=== PATIENT | male | born 1945 | race Caucasian/White ===

== ENCOUNTER 2016-03-25 13:51 | Inpatient (IN) | payer OTHER, MEDICAID ==
--- NOTE | 2016-03-25 14:49 | EDPHY ---
H & P Time Seen by Provider: 03/25/16 14:48 HPI/ROS: Chief complaint. Shortness of breath HPI. 70-year-old male here by EMS who had shortness of breath after shoveling snow this morning. He could not catch his breath. It was difficult to walk about 35 yd because of shortness of breath. However he sat down causes breath and now feels better. He did not have chest discomfort. No fever cough. Again he is now back to normal. He has a history of COPD. No unusual leg pain or swelling ROS Constitutional. no fever/chills, no weakness Eyes. no problems with vision ENT. no sore throat, no nasal drainage Cardiovascular. no chest pain Respiratory. Shortness of breath Abdominal. no abdominal pain, no nausea/vomiting, no diarrhea . no problems urinating MS. no calf pain/swelling, no neck/back pain, no joint pain Skin. no rash Lymph. no swollen glands Neuro. no headache, no dizziness, no difficulty walking or with speech Past Medical/Surgical History: Hypertension, chronic back pain, kidney stones, COPD Social History: Single, daily smoker, no alcohol Smoking Status: Current every day smoker Physical Exam: General Appearance: Alert well-developed male mild distress vital signs are stable. O2 saturation 91% sat on room air Eyes: Pupils equal and round no pallor or injection. ENT, Mouth: Mucous membranes are moist. Respiratory: No retractions. Decreased breath sounds bilaterally Cardiovascular: Regular rate and rhythm. Gastrointestinal: Abdomen is soft and nontender, no masses, bowel sounds normal. Neurological: Awake and alert, sensory and motor exams grossly normal. Skin: Warm and dry, no rashes. Musculoskeletal: Neck is supple nontender. Extremities symmetrical, full range of motion. Psychiatric: Patient is oriented X 3, there is no agitation. Constitutional: Initial Vital Signs Temperature (C) 36.9 C 03/25/16 14:13 Heart Rate 90 03/25/16 14:13 Respiratory Rate 20 03/25/16 14:13 Blood Pressure 126/84 H 03/25/16 14:13 O2 Sat (%) 91 L 03/25/16 14:13 O2 Delivery Mode Room Air Allergies/Adverse Reactions: prednisone Allergy (Verified 02/24/15 10:17) Home Medications: Medication Instructions Recorded Lisinopril [Zestril 20 mg (RX)] 20 mg PO DAILY 08/27/12 celeCOXIB [Celebrex (RX)] 400 mg PO DAILY 08/27/12 morphINE SR [MS Contin/Oramorph SR 30 mg PO TID 06/17/13 30 mg (RX)] morphINE SR [Ms Contin/Oramorph 15 15 mg PO BID PRN 06/18/13 mg (RX)] Viagra 09/26/15 Baclofen [Baclofen 10 mg (*)] 10 mg PO BID 03/25/16 Bupropion HCl [Wellbutrin Xl] 300 mg PO DAILY 03/25/16 FLUoxetine [PROzac] 20 mg PO 03/25/16 Fluticasone/Vilanterol [Breo 1 each IH 03/25/16 Ellipta 200-25 Mcg INH] Testosterone [Androderm] 4 each TD DAILY 03/25/16 Medical Decision Making - Diagnostics Imaging: Chest x-ray interpreted by me shows no obvious evidence of pneumonia or pneumothorax. It is consistent with emphysema CT pulmonary angiogram of the chest shows no evidence for pulmonary embolus. He does have some stable heart nodules that do require some follow-up. Procedures: [facility]er[facility] ED Course/Re-evaluation: Serial evaluations. The patient remains stable. The patient and I discussed laboratory imaging results. We discussed treatment plan including admission and further evaluation. The patient expresses understanding and agreement I consulted and discussed the case with , hospitalist, who agrees to the admission Differential Diagnosis: I considered pneumonia, pneumothorax, pulmonary embolus, acute coronary syndrome , exacerbation of COPD - Data Points Laboratory Results: Laboratory Results 03/25/16 15:35 03/25/16 15:35 03/25/16 15:35 WBC 11.13 H 10^3/uL (3.80-9.50) RBC 5.38 10^6/uL (4.40-6.38) Hgb 15.9 g/dL (13.7-17.5) Hct 45.8 % (40.0-51.0) MCV 85.1 fL (81.5-99.8) MCH 29.6 pg (27.9-34.1) MCHC 34.7 g/dL (32.4-36.7) RDW 13.5 % (11.5-15.2) Plt Count 219 10^3/uL (150-400) MPV 9.4 fL (8.7-11.7) Neut % (Auto) 65.3 % (39.3-74.2) Lymph % (Auto) 23.2 % (15.0-45.0) Morrow % (Auto) 8.3 % (4.5-13.0) Eos % (Auto) 2.2 % (0.6-7.6) Baso % (Auto) 0.5 % (0.3-1.7) Nucleat RBC Rel Count 0.0 % (0.0-0.2) Absolute Neuts (auto) 7.26 H 10^3/uL (1.70-6.50) Absolute Lymphs (auto) 2.58 10^3/uL (1.00-3.00) Absolute Monos (auto) 0.92 H 10^3/uL (0.30-0.80) Absolute Eos (auto) 0.25 10^3/uL (0.03-0.40) Absolute Basos (auto) 0.06 10^3/uL (0.02-0.10) Absolute Nucleated RBC 0.00 10^3/uL (0-0.01) Immature Gran % 0.5 % (0.0-1.1) Immature Gran # 0.06 10^3/uL (0.00-0.10) D-Dimer 0.65 H ug/mLFEU (0.00-0.50) Sodium 141 mEq/L (134-144) Potassium 4.5 mEq/L (3.5-5.2) Chloride 105 mEq/L (97-110) Carbon Dioxide 23 mEq/l (22-31) Anion Gap 13 mEq/L (8-16) BUN 22 mg/dL (7-23) Creatinine 0.9 mg/dL (0.7-1.3) Estimated GFR > 60 Glucose 100 mg/dL (70-100) Calcium 9.7 mg/dL (8.5-10.4) Troponin I 0.045 H ng/mL (0-0.034) NT-Pro-B Natriuret Pep 253 H pg/mL (0-125) Medications Given: Discontinued Medications Albuterol/Ipratropium (Duoneb) 3 ml IH EDNOW ONE Stop: 03/25/16 15:01 Last Admin: 03/25/16 15:53 Dose: 3 ml Morphine Sulfate (Ms Contin/Oramorph) 15 mg PO ONCE ONE Stop: 03/25/16 16:52 Last Admin: 03/25/16 17:29 Dose: 15 mg Morphine Sulfate (Ms Contin/Oramorph Sr) 30 mg PO ONCE ONE Stop: 03/25/16 16:53 Last Admin: 03/25/16 17:29 Dose: 30 mg Departure - Departure Disposition: [facility] Inpatient Acute Clinical Impression: Elevated troponin level Dyspnea Qualifiers: Dyspnea type: dyspnea on exertion Qualifier Code: (R06.09) Other forms of dyspnea Condition: Fair Referrals: Stanley Lewis MD [Primary Care Provider] - As per Instructions
[2016-03-25] MEDS ORDERED: IPRATROPIUM/ALBUTEROL 3 ML DEYVIAL IH ONE (15:00)
--- NOTE | 2016-03-25 15:40 | DX ---
PA lateral chest x-ray 1443 hours. History: Dyspnea. Findings: Comparison to chest x-ray January 07, [address] chest study from September 11, 2015. Heart size remains upper limits of normal. Pulmonary vasculature is not significant engorged. There i s a stable subtle nodule right superhilar region measuring about 10 x 9 mm. No new pulmonary nodules are appreciated. There is no consolidation, effusion, or pneumothorax. There is relative lucency of t he upper lobes compatible with underlying emphysema. Arteriosclerotic calcification is noted at the a ortic arch level. Osseous structures are unchanged. Impression: 1. Stable smooth noncalcified pulmonary nodule inferior aspect right upper lobe. 2. Lucency involving the upper lobes compatible with underlying emphysema. 3. No evidence of acute infiltrate.
[2016-03-25 15:45] LABS: % IMMATURE GRANULYOCYTES 0.5 % (0.0-1.1); ABSOLUTE IMMATURE GRANULOCYTES 0.06 10^3/uL (0.00-0.10); ADD DIFF? NO; ADD MORPH? NO; ADD SCAN? NO; ATYPICAL LYMPHOCYTE FLAG 10 (0-99); FRAGMENT RBC FLAG 0 (0-99); HEMATOCRIT 45.8 % (40.0-51.0); HEMOGLOBIN 15.9 g/dL (13.7-17.5); LEFT SHIFT FLG 0 (0-99); LIPEMIA HEMOLYSIS FLAG 90 (0-99); MEAN CELL HEMOGLOBIN 29.6 pg (27.9-34.1); MEAN CELL HEMOGLOBIN CONCENTR. 34.7 g/dL (32.4-36.7); MEAN CELL VOLUME 85.1 fL (81.5-99.8); MEAN PLATELET VOLUME 9.4 fL (8.7-11.7); PLATELET CLUMPS FLAG 0 (0-99); PLATELET COUNT 219 10^3/uL (150-400); RED BLOOD CELL COUNT 5.38 10^6/uL (4.40-6.38); RED CELL DISTRIBUTION WIDTH 13.5 % (11.5-15.2)
[2016-03-25 16:02] LABS: ANION GAP 13 mEq/L (8-16); CALCIUM 9.7 mg/dL (8.5-10.4); CARBON DIOXIDE 23 mEq/l (22-31); CHLORIDE 105 mEq/L (97-110); CREATININE 0.9 mg/dL (0.7-1.3); GLOMERULAR FILTRATION RATE > 60; GLUCOSE 100 mg/dL (70-100); POTASSIUM 4.5 mEq/L (3.5-5.2); SODIUM 141 mEq/L (134-144)
--- NOTE | 2016-03-25 16:06 | CPEKG ---
Heart Rate: 73 RR Interval: 822 P-R Interval: 144 QRSD Interval: 100 QT Interval: 404 QTC Interval: 446 P [place]: 58 QRS [place]: 48 T Wave [place]: -32 EKG Severity - BORDERLINE ECG - EKG Impression: SINUS RHYTHM EKG Impression: BORDERLINE T ABNORMALITIES, DIFFUSE LEADS Electronically Signed By: Goyo Stevenson 25-Mar-2016 20:38:10
[2016-03-25 16:15] LABS: TROPONIN I 0.045 ng/mL (0-0.034)
[2016-03-25] MEDS ORDERED: morphINE SR 15 MG TAB PO ONE (16:51)
[2016-03-25] MEDS ORDERED: morphINE SR 30 MG TAB PO ONE (16:52)
[2016-03-25] MEDS ORDERED: IOPAMIDOL (ISOVUE 370) 100 ML BTL IV ONE (16:52)
--- NOTE | 2016-03-25 17:45 | CT ---
CT Pulmonary Angiogram Clinical Indications: Shortness of breath. Comparisons: September 11, 2015, February 02, 2015. Technique: Thinly collimated multidetector helical CT imaging was performed through the chest while 90 mL Isovue-370 were injected intravenously without complication. The images were then transferred to an independent workstation where multiplanar and three-dimensional reconstructions were performed by the interpreting physician and reviewed at multiple windows. Dose reduction techniques were utiliz ed. Findings Chest: There are diffuse emphysematous changes. Multiple pulmonary nodules are again present. The right upper lobe posteromedial nodule previously seen series 4 image 30 is obscured on today's ex amination. A nodular density on series 6 image 41 is stable at 5.0 x 4 mm but slightly obscured by adjacent atel ectatic change. The nodule series 6 image 47 measuring 9.5 x 7.2 mm is relatively stable. Scarring along the minor fi ssure in the left lobe remains stable. A nodule seen today measuring 3 x 2 mm is stable on series 6 i mage 113. Basilar interstitial changes are present. 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 CT Pulmonary Angiogram: No intraluminal filling defects are seen in the pulmonary arterial system to suggest pulmonary embolus. The thoracic aorta has a normal contour without evidence of aneurysm or dissection. Impressions 1. No pulmonary emboli. 2. Persistent emphysematous and interstitial lung changes. 3. Stable pulmonary nodules. Given the size of the largest pulmonary nodule, recommend continued inte rval follow up for a total of 24 months. The next examination should be at 18 to 24 months.
[2016-03-25] MEDS ORDERED: ONDANSETRON 4 MG/2 ML VIAL IVP PRN (23:06)
[2016-03-25] MEDS ORDERED: ACETAMINOPHEN 325 MG TAB PO PRN (23:06)
[2016-03-25] MEDS: IPRATROPIUM/ALBUTEROL 3 ML DEYVIAL IH PRN (23:46)
--- NOTE | 2016-03-25 23:53 | GHP ---
[f rep st] HISTORY AND PHYSICAL DATE OF ADMISSION: 03/25/2016 CHIEF COMPLAINT: Acute shortness of breath. HISTORY: The patient is a 70-year-old male who was clearing snow from his car when suddenly he devel oped severe shortness of breath. He went into the public housing where he lives, and felt he was in severe distress and motion to other residents to call 9-1-1. At no point, did he have any chest pain . At some point, this shortness of breath resolved and he is now back to baseline. He has a certain degree of chronic shortness of breath and dyspnea on exertion due to his underlying COPD. He does c ontinue to smoke. He is highly concerned about the chemical fumes that he inhales at his public hous ing and seems to perseverate on this issue quite a bit. He has a chronic cough which is recently unc hanged. He was found have a borderline troponin elevation in the emergency room, so he was being adm itted to observation for cardiac evaluation. PAST MEDICAL HISTORY: 1. Hypertension. 2. COPD. 3. Chronic pain with continuous narcotic dependency. PAST SURGICAL HISTORY: BPH, status post [employer] prostate surgery. MEDICATIONS: Please see computer record for full detailed list. ALLERGIES: Prednisone. SOCIAL HISTORY: Continues to smoke. He has had 3 cigarettes so far today. Occasionally drinks alco hol. Lives in an apartment at the [facility] authority. REVIEW OF SYSTEMS: Complete review of systems obtained. Review of systems is negative for constitut ional, HEENT, GI, pulmonary, cardiovascular, , hematology, skin, musculoskeletal, endocrine and psy ch except for positive pertinents which were listed as in HPI. FAMILY HISTORY: Father with coronary artery disease. PHYSICAL EXAMINATION: GENERAL: Well-developed well-nourished male, in no acute distress. VITAL SIG NS: Temperature is 37.2, pulse 76, blood pressure 126/82, saturating 98% room air. EYES: Normal co njunctivae. Pupils react to light. ENT: Normal ears and nose. Hearing intact. Normal teeth. Joaquin pharynx moist. NECK: Trachea midline. No thyromegaly. CHEST: Normal respiratory effort. Decreas ed breath sounds bilaterally with no wheezes, rhonchi, or rales. CARDIOVASCULAR: Regular rhythm. N o murmur. No lower extremity edema. ABDOMEN: Soft, nontender. No hepatosplenomegaly. SKIN: Warm , dry, intact. No rash. MUSCULOSKELETAL: No cyanosis or clubbing. Strength 5/5 upper and lower ex tremities. NEUROLOGIC: Cranial nerves intact. Normal sensation to light touch. PSYCH: Alert and oriented x3. Normal mood and affect. Normal judgment and insight. Normal memory. LABS: White count 11.13, hematocrit 45.8, platelets 219. Sodium 141, potassium 4.5, chloride 105, b icarb 23, BUN 22, creatinine 0.9, glucose 100. Troponin 0.045. BNP is 253. D-dimer 0.65. EKG reviewed by me and my personal interpretation is normal sinus rhythm. Diffuse T-wave flattening. CT angiogram of chest negative for pulmonary embolus. He does have pulmonary nodules for which follo wup is recommended in 24 months. ASSESSMENT AND PLAN: 1. Shortness of breath with slight troponin elevation. Query anginal equivalent. Will follow seria l troponins and EKGs. Will order Lexiscan stress test for the morning. 2. Chronic obstructive pulmonary disease. I suspect he is at his baseline. We will continue Breo a nd nebs as needed. 3. Chronic pain with continuous narcotic dependency. Continue his usual MS Contin dosing. 4. Pulmonary nodules. These are recommended for followup in 24 months. CODE STATUS: Full. ADMISSION STATUS: Will admit to observation as he may go home tomorrow if cardiac evaluation is nega tive. DVT PROPHYLAXIS: He is moderate risk. Will prescribe subcu Lovenox. /[id number]/MODL
[2016-03-26] MEDS: BACLOFEN 10 MG TAB PO SCH ×2 (00:23→20:27)
[2016-03-26 01:51] LABS: COLOR YELLOW; LEUKOCYTE ESTERASE,URINE NEGATIVE (NEGATIVE); NITRITE,URINE NEGATIVE (NEGATIVE)
[2016-03-26 04:05] LABS: % IMMATURE GRANULYOCYTES 0.7 % (0.0-1.1); ABSOLUTE IMMATURE GRANULOCYTES 0.05 10^3/uL (0.00-0.10); ADD DIFF? NO; ADD MORPH? NO; ADD SCAN? NO; ATYPICAL LYMPHOCYTE FLAG 10 (0-99); FRAGMENT RBC FLAG 0 (0-99); HEMATOCRIT 42.5 % (40.0-51.0); HEMOGLOBIN 14.5 g/dL (13.7-17.5); LEFT SHIFT FLG 0 (0-99); LIPEMIA HEMOLYSIS FLAG 90 (0-99); MEAN CELL HEMOGLOBIN 29.1 pg (27.9-34.1); MEAN CELL HEMOGLOBIN CONCENTR. 34.1 g/dL (32.4-36.7); MEAN CELL VOLUME 85.3 fL (81.5-99.8); MEAN PLATELET VOLUME 9.5 fL (8.7-11.7); PLATELET CLUMPS FLAG 0 (0-99); PLATELET COUNT 192 10^3/uL (150-400); RED BLOOD CELL COUNT 4.98 10^6/uL (4.40-6.38); RED CELL DISTRIBUTION WIDTH 13.6 % (11.5-15.2)
[2016-03-26 04:12] LABS: ANION GAP 9 mEq/L (8-16); CALCIUM 9.2 mg/dL (8.5-10.4); CARBON DIOXIDE 22 mEq/l (22-31); CHLORIDE 108 mEq/L (97-110); CHOLESTEROL 232 mg/dL (140-220); CHOLESTEROL/HDL RATIO 5.27 RATIO (1.00-4.97); CREATININE 0.8 mg/dL (0.7-1.3); GLOMERULAR FILTRATION RATE > 60; GLUCOSE 105 mg/dL (70-100); HIGH DENSITY LIPOPROTEIN 44 mg/dL (40-65); LDL/HDL RATIO 3.73 RATIO (1.00-3.64); LOW DENSITY LIPOPROTEIN 164 mg/dL (80-100); NON-HIGH DENSITY LIPOPROTEIN 188 mg/dL (90-129); POTASSIUM 4.3 mEq/L (3.5-5.2); SODIUM 139 mEq/L (134-144); TRIGLYCERIDE 124 mg/dL (40-150); VERY LOW DENSITY LIPOPROTEINS 24 mg/dL (8-25)
[2016-03-26 04:23] LABS: TROPONIN I 0.088 ng/mL (0-0.034)
[2016-03-26] MEDS: IPRATROPIUM/ALBUTEROL 3 ML DEYVIAL IH PRN ×2 (05:39→10:59)
--- NOTE | 2016-03-26 05:46 | CPEKG ---
Heart Rate: 63 RR Interval: 952 P-R Interval: 152 QRSD Interval: 100 QT Interval: 436 QTC Interval: 447 P [place]: 33 QRS [place]: 44 T Wave [place]: 190 EKG Severity - ABNORMAL ECG - EKG Impression: SINUS RHYTHM EKG Impression: LOW VOLTAGE IN FRONTAL LEADS EKG Impression: NONSPECIFIC T ABNORMALITIES, DIFFUSE LEADS Electronically Signed By: Darrell Goodrich 27-Mar-2016 10:53:06
[2016-03-26] MEDS: ASPIRIN EC 325 MG TAB PO SCH (08:53)
[2016-03-26] MEDS: buPROPion XL 150 MG TAB PO SCH (08:53)
[2016-03-26] MEDS: ENOXAPARIN 40 MG/0.4 ML SYR SC SCH (08:53)
[2016-03-26] MEDS: FLUoxetine 20 MG CAP PO SCH (08:53)
[2016-03-26] MEDS: morphINE SR 30 MG TAB PO SCH (08:54)
[2016-03-26] MEDS: LISINOPRIL 20 MG TAB PO SCH (08:54)
[2016-03-26] MEDS: morphINE SR 15 MG TAB PO SCH (08:54)
[2016-03-26] MEDS: Fluticasone/Vilanterol [Breo Ellipta 200-25 Mcg Inh] 1 EACH IH SCH (08:55)
[2016-03-26] MEDS: TESTOSTERONE TD SCH (08:56)
[2016-03-26] MEDS ORDERED: REGADENOSON 0.4 MG/5 ML SYR IVP ONE (10:29)
--- NOTE | 2016-03-26 13:59 | ECHO ---
[id number] + + [address] : : [place] [address] : : [phone] + + Adult Echocardiographic Report + + :Name: ALEC COHEN HStudy Date: 03/26/2016 11:50 AM BP: 121/77 mmHg : : Hospital Admission Number: [id number] : :: 1945 Gender: Male Height: 71 in : :Age: 70 yrs Race: WH Weight: 237 lb : :Reason For Study: chf : : BSA: 2.3 meters2: :History: bicuspid av : + + MMode/2D Measurements & Calculations IVSd: 1.0 cm RVDd: 3.4 cm FS: 32.3 % Ao root diam: LVPWd: 1.1 cm LVIDd: 4.0 cm EDV(Teich): 69.6 ml4.3 cm LVIDs: 2.7 cm ESV(Teich): 27.1 ml EF(Teich): 61.2 % LVOT diam: 2.2 cmLVLd ap4: 8.5 cm SV(MOD-sp4): LVOT area: EDV(MOD-sp4): 96.0 ml 3.8 cm2 148.0 ml LVLs ap4: 7.3 cm ESV(MOD-sp4): 52.0 ml EF(MOD-sp4): 64.9 % Normal Measurement Values: + + :LVIDd (3.5-5.7cm) IVSd (0.6-1.1cm) LVPWd (0.6-1.1cm) Aortic Root (2.0-3.7cm)Left Atrium (1.5-4.0cm): :LV Vol(d) (76-115ml) LV Vol(s) (29-48ml) Ejec Fraction (50-65%)PV Toño (0.6- 1.2m/s) TV Toño (0.4-1.0m/s) : :MV E Toño (0.8-1.0m/s)MV A Toño (0.3-1.0m/s)LVOT Toño (0.7-1.2m/s) Asc Ao Toño ( 0.9-1.8m/s) : + + Doppler Measurements & Calculations MV E max toño: Ao mean PG: AI max toño: LV V1 mean P.6 cm/sec 14.9 mmHg 295.9 cm/sec 1.5 mmHg MV A max toño: Ao V2 mean: AI max P.0 mmHgLV V1 mean: 54.6 cm/sec 186.7 cm/sec AI dec slope: 57.7 cm/sec MV E/A: 0.63 Ao V2 VTI: 50.8 cm 185.4 cm/sec2 LV V1 VTI: MV dec time: NOEL(I,D): 1.4 cm2 AI P1/2t: 467.5 msec18.1 cm 0.27 sec SV(LVOT): 69.3 ml PA V2 max: 69.8 cm/sec PA max P.9 mmHg Left Ventricle The left ventricle is normal in size and function. There is borderline concentric left ventricular hypertrophy. There is Doppler evidence for diastolic dysfunction. Ejection Fraction = 60-65%. Regional wall motion abnormalities cannot be excluded due to limited visualization. Right Ventricle The right ventricle is normal in size and function. Atria The left atrial size is normal. Right atrial size is normal. Mitral Valve The mitral valve is normal in structure and function. There is no mitral valve stenosis. There is no mitral regurgitation noted. Tricuspid Valve The tricuspid valve is normal in structure and function. No tricuspid regurgitation. Aortic Valve The aortic valve is bicuspid. Mild to moderate valvular aortic stenosis. Aortic insufficiency difficult to grade to due sub-optimal window and uncooperative patient. The jet is eccentric and at least mild; more likely mild to moderate. Pulmonic Valve The pulmonic valve is not well visualized. Great Vessels The aortic root is normal size. Pericardium/Pleural There is no pericardial effusion. Conclusion A two-dimensional transthoracic echocardiogram with M-mode and Doppler was performed. Technically difficult study and uncooperative patient. The left ventricle is normal in size and function. There is borderline concentric left ventricular hypertrophy. Ejection Fraction = 60-65%. There is Doppler evidence for diastolic dysfunction. The aortic valve is bicuspid. Mild to moderate valvular aortic stenosis with peak/mean gradients of 35 mmHg and 15 mmHg. Aortic valve area 1.4 sq cm. Aortic insufficiency difficult to grade to due sub-optimal window and uncooperative patient. The jet is eccentric and at least mild; more likely mild to moderate. Other valves with normal appearance. PA systolic pressure could not be estimated. Final Reading Physician: Wisam Cameron signed on 03/26/2016 01:58 PM Ordering Physician: Angelica Carbone Performed By: Chléo Donohue
--- NOTE | 2016-03-26 14:45 | CPR ---
[f rep st] NONINVASIVE CARDIAC PROCEDURE REPORT DATE OF PROCEDURE: 03/26/2016 PROCEDURE: Lexiscan nuclear stress test. INDICATIONS FOR PROCEDURE: A 70-year-old male with no known cardiac history and underlying asthma an d COPD who was admitted through the emergency room yesterday for acute on chronic shortness of breath . His troponins have been minimally elevated x3. He has ruled out for pulmonary embolism by chest C T angiography. Nuclear stress testing is ordered by the hospitalist service for further risk stratif ication and surveillance myocardial perfusion. PROCEDURE DESCRIPTION: Informed consent was obtained. Baseline EKG, heart rate and blood pressure w ere obtained in the supine position with continuous pulse oximetry. The patient was pretreated with a bronchodilator nebulizer prior to standard Lexiscan 0.4 mg IV push followed by 27.3 mCi of sestamib i. He was observed throughout the duration of the test for 1-1/2 minutes and then observed in recove ry for 5 minutes. FINDINGS: Baseline EKG shows normal sinus rhythm at 64 beats per minute, QRS axis and intervals are normal. There are no ischemic EKG changes. Resting blood pressure is 124/64 mmHg. Oxygen saturatio n is 95%. Following injection of Lexiscan, the patient described warmth, but no worsening of chest d iscomfort or shortness of breath. There were no ischemic EKG changes throughout the test. Overall t he patient tolerated the test well. IMPRESSION: 1. Mildly elevated troponins. 2. Acute on chronic shortness of breath. 3. Asthma and chronic obstructive pulmonary disease. 4. Unremarkable Lexiscan stress test. PLAN: The patient will be sent down for myocardial perfusion imaging. We will await results. If th ere is evidence of reversible myocardial perfusion on imaging, we will discuss whether further diagno stic angiography is indicated. /[id number]/MODL
[2016-03-26] MEDS: morphINE SR 30 MG TAB PO PRN (18:08)
[2016-03-26] MEDS ORDERED: BACLOFEN 10 MG TAB PO SCH (21:00)
--- NOTE | 2016-03-26 21:02 | HOSPPROG ---
Hospitalist Progress Note Assessment/Plan: *dyspnea with borderline tropnonin elevation * abnormal stress images * will need to stay for resting images *as/ai * will need to discuss with cardiology * copd *chronic pain Subjective: no chest pain Objective: Vital Signs Temp Pulse Resp BP Pulse Ox 36.9 C 77 14 122/77 H 97 03/26/16 19:53 03/26/16 19:53 03/26/16 19:53 03/26/16 19:53 03/26/16 19:53 Laboratory Results 03/26/16 03:36 03/26/16 03:36 03/25/16 03/26/16 03/27/16 05:59 05:59 05:59 Intake Total 1000 360 Output Total 250 Balance 750 360 - Physical Exam Constitutional: no apparent distress, appears nourished, not in pain Eyes: anicteric sclera, EOMI Ears, Nose, Mouth, Throat: moist mucous membranes Cardiovascular: regular rate and rhythym, systolic murmur Respiratory: no respiratory distress, no rales or rhonchi, clear to auscultation Gastrointestinal: normoactive bowel sounds, soft, non-tender abdomen, no palpable masses Neurologic: AAOx3 Psychiatric: interacting appropriately, not anxious, not encephalopathic, thought process linear ICD10 Worksheet Patient Problems: Problems Problem Status Diagnosed Dyspnea Acute Elevated troponin Acute Acute renal failure syndrome Active Pain in cervical spine Active
[2016-03-27] MEDS: morphINE SR 30 MG TAB PO SCH ×3 (00:47→21:55)
[2016-03-27] MEDS: morphINE SR 15 MG TAB PO SCH ×3 (00:47→21:55)
[2016-03-27] MEDS: Fluticasone/Vilanterol [Breo Ellipta 200-25 Mcg Inh] 1 EACH IH SCH (08:51)
[2016-03-27] MEDS: buPROPion XL 150 MG TAB PO SCH (09:14)
[2016-03-27] MEDS: ASPIRIN EC 325 MG TAB PO SCH (09:14)
[2016-03-27] MEDS: LISINOPRIL 20 MG TAB PO SCH (09:14)
[2016-03-27] MEDS: FLUoxetine 20 MG CAP PO SCH (09:15)
[2016-03-27] MEDS: ENOXAPARIN 40 MG/0.4 ML SYR SC SCH (09:15)
[2016-03-27] MEDS: TESTOSTERONE TD SCH (09:52)
--- NOTE | 2016-03-27 11:09 | NM ---
Nuclear Medicine Myocardial Perfusion Stress and Rest Imaging with Lexiscan History: Abnormal EKG. History of COPD. Tobacco use. Technique: Rest imaging performed with intravenous administration of 21.3 mCi of technetium 99m la beled Sestamibi. Stress imaging performed with the intravenous administration of 27.3 mCi of techneti um 99m Sestamibi labeled with the administration of 0.4 mg of Lexiscan. Findings: Normal left ventricular ejection fraction of 59%. Stress and rest imaging demonstrates focal area of decreased uptake on stress imaging involving the left ventricular apex that appears to show normal uptake on rest imaging. This could represent focal area of mild ischemia. Uptake is other babin normal involving the left ventricle. No focal wall motion abnormalities. Impression: 1. Normal left ventricular ejection fraction of 59%. 2. No focal wall motion abnormalities. 3. Possible focal area of ischemia left ventricular apex. No underlying infarct.
[2016-03-27] MEDS: POLYETHYLENE GLYCOL 3350 17 GM PKT PO PRN (12:30)
--- NOTE | 2016-03-27 12:37 | PDCARPN ---
Cardiology Progress Note Chief Complaint: SOB. Assessment/Plan: Assessment: 1. Shortness of breath 2. Abnormal Lexiscan nuclear stress 3. Abnormal troponin 4. HTN 5. Hyperlipidemia 6. Current smoking history Plan: 1. Add Atorvastatin 40 mg daily 2. Add aspirin 81 mg daily 3. continue Lisinpril 20 mg daily 4. NPO after midnight 5. Left Heart Cath tomorrow 6. Smoking cessation discussed. 03/27/16 12:34 Subjective: 70 year old gentleman with multiple CAD risk factors with acute onset of sob on Monday while clearing his car from snow. Mildly abnormal troponin and apical ischemia on nuclear stress test. Reviewed/Discussed With: hospitalist Time Spent With Patient: 30 minutes Objective: Vital Signs (8 Hrs) Temp Pulse Resp BP Pulse Ox 03/27/16 08:15 36.8 C 67 17 121/61 H 98 03/27/16 05:00 36.5 C 71 16 148/87 H 97 Intake/Output (24 Hrs) 03/26/16 03/27/16 03/28/16 05:59 05:59 05:59 Intake Total 750 Output Total 150 Balance 600 Intake: Oral (ml) 750 Output: Urine (ml) 150 Urinal 150 Other: Number of Voids Urinal 1 Toilet 1 Result Diagrams: 03/26/16 03:36 03/26/16 03:36 - Physical Exam Constitutional: WDWN, obese Eyes: anicteric sclera Ears, Nose, Mouth, Throat: moist mucous membranes Cardiovascular: regular rate and rhythm, systolic murmur Peripheral Pulses: 2+: carotid (R), carotid (L) Respiratory: clear to auscultate bilat Gastrointestinal: normoactive bowel sounds, no tenderness Neurologic: AAOx3, CN II-XII grossly intact Psychiatric: cooperative, interactive, following commands ICD10 Worksheet Patient Problems: Problems Problem Status Diagnosed Dyspnea Acute Elevated troponin Acute Acute renal failure syndrome Active Pain in cervical spine Active
[2016-03-27] MEDS: morphINE SR 30 MG TAB PO PRN (13:53)
--- NOTE | 2016-03-27 14:34 | HOSPPROG ---
Hospitalist Progress Note Assessment/Plan: *dyspnea with borderline tropnonin elevation * abnormal stress images * will get heart catheterization tomorrow *as/ai * appears to be mild * copd *chronic pain Subjective: no new complaints. No chest pain or shortness of breath Objective: Vital Signs Temp Pulse Resp BP Pulse Ox 36.7 C 75 14 103/67 93 03/27/16 12:59 03/27/16 12:59 03/27/16 12:59 03/27/16 12:59 03/27/16 12:59 03/26/16 03/27/16 03/28/16 05:59 05:59 05:59 Intake Total 750 120 Output Total 150 Balance 600 120 tele personally reviewed interpreted normal sinus rhythm discussed with Cardiology - Physical Exam Constitutional: no apparent distress, appears nourished, not in pain Eyes: anicteric sclera, EOMI Ears, Nose, Mouth, Throat: moist mucous membranes, hearing normal, ears appear normal Cardiovascular: regular rate and rhythym, systolic murmur Respiratory: no respiratory distress, no rales or rhonchi, clear to auscultation Gastrointestinal: normoactive bowel sounds, soft, non-tender abdomen, no palpable masses Skin: warm Neurologic: AAOx3 Psychiatric: interacting appropriately, not anxious, not encephalopathic, thought process linear ICD10 Worksheet Patient Problems: Problems Problem Status Diagnosed Dyspnea Acute Elevated troponin Acute Acute renal failure syndrome Active Pain in cervical spine Active
[2016-03-27] MEDS ORDERED: TEMAZEPAM 15 MG CAP PO PRN (15:00)
[2016-03-27] MEDS ORDERED: BACLOFEN 10 MG TAB PO PRN (16:42)
--- NOTE | 2016-03-27 19:28 | GCON ---
[f rep st] CONSULTATION CARDIOLOGY CONSULTATION DATE OF CONSULTATION: 03/27/2016 INDICATION FOR CONSULTATION: Exertional dyspnea on exertion, abnormal Lexiscan nuclear stress test. HISTORY OF PRESENT ILLNESS: The patient is a pleasant 70-year-old gentleman with a past medical hist ory of hypertension, COPD, chronic pain on chronic narcotic therapy, and history of BPH, who presente d to [facility] Emergency Department on March 25, 2016, in the setting of developing acute shortness of breath and dyspnea while clearing snow from his car. He states he went inside an d called 911. He denied any associated chest pain or chest pressure. He was admitted to [address] [place] [address] for observation. He was determined to have borderline troponins with initial troponin of 0.045 , trending up to 0.098, and trending down to . He underwent a pharmacologic Lexiscan nucl ear stress test. During Lexiscan, he had no chest pain or ECG changes. Nuclear images demonstrated a small area of ischemia isolated to the LV apex. He also underwent a CTA, which was negative for pu lmonary emboli. The patient also has a known history of a murmur. Echocardiogram demonstrated [id number] aorti c stenosis with preserved left ventricular function. Pulmonary pressures were unable to be calculate d. Currently, at the time of my exam, he is resting comfortably without complaint. PAST MEDICAL HISTORY: 1. Hypertension. 2. COPD. 3. Chronic pain. 4. History of smoking. PAST MEDICAL HISTORY: BPH. MEDICATIONS ON ADMISSION: Include morphine, lisinopril 20 mg daily, Prozac 40 mg daily, Celebrex 400 mg daily, Wellbutrin 300 mg daily, baclofen 10-15mg p.o. h.s., fluticasone/vilanterol 200/25 mcg inh aled daily, testosterone Androderm daily. ALLERGIES TO MEDICATION: Include prednisone. PHYSICAL EXAMINATION: VITAL SIGNS: Blood pressure 121/61, heart rate 67 in sinus rhythm, oxygen sat uration of 98% on 2 L nasal cannula, heart rate 67, temperature 36.8. CONSTITUTIONAL: He is awake, alert, oriented, and appropriate in no apparent distress. NECK: No evidence of JVP or carotid bruit s. LUNGS: Clear to auscultation bilaterally. CARDIAC: He has a 1/6 systolic murmur audible at the right upper sternal border without radiation. ABDOMEN: Demonstrates normal bowel sounds. Soft. N ontender. No evidence of cyanosis, clubbing, or edema. LABORATORY DATA: Demonstrates a white blood cell count of 7.68, hemoglobin of 14.5, hematocrit of 42 .5, platelets of 192. Sodium 139, potassium 4.3, chloride 108, bicarb 22, BUN 16, creatinine 0.8, gl ucose 105. Troponin has trended from 0.045 up to 0.098 and down to . Lipid profile demons trates total cholesterol of 232, triglycerides of 124, HDL of 44, and LDL of 164. IMPRESSION: 1. Abnormal nuclear stress test. 2. Mildly elevated troponin. 3. Multiple coronary artery disease risk factors, including hypertension, hyperlipidemia, and smokin g history. 4. Bmsr-pf-vwdaftse aortic stenosis. DISCUSSION: The patient is a 70-year-old gentleman with multiple coronary artery disease risk factor s, and acute onset of shortness of breath while removing snow from his car yesterday. Troponins were mildly abnormal. Nuclear stress test demonstrates a small area of ischemia isolated to the apex. I n the setting of multiple coronary artery disease risk factors and mildly elevated troponin, would re commend left heart catheterization. PLAN: 1. Recommend left heart catheterization to be done tomorrow. 2. Add atorvastatin 40 mg daily. 3. Add aspirin 81 mg daily. 4. Continue current dose of lisinopril. /[id number]/MODL
[2016-03-27] MEDS: BACLOFEN 10 MG TAB PO SCH (21:54)
[2016-03-28 04:45] LABS: % IMMATURE GRANULYOCYTES 0.4 % (0.0-1.1); ABSOLUTE IMMATURE GRANULOCYTES 0.03 10^3/uL (0.00-0.10); ADD DIFF? NO; ADD MORPH? NO; ADD SCAN? NO; ATYPICAL LYMPHOCYTE FLAG 10 (0-99); FRAGMENT RBC FLAG 0 (0-99); HEMOGLOBIN 14.1 g/dL (13.7-17.5); LEFT SHIFT FLG 0 (0-99); LIPEMIA HEMOLYSIS FLAG 80 (0-99); MEAN CELL HEMOGLOBIN 29.6 pg (27.9-34.1); MEAN CELL HEMOGLOBIN CONCENTR. 32.8 g/dL (32.4-36.7); MEAN CELL VOLUME 90.3 fL (81.5-99.8); MEAN PLATELET VOLUME 9.6 fL (8.7-11.7); PLATELET CLUMPS FLAG 0 (0-99); PLATELET COUNT 172 10^3/uL (150-400); RED BLOOD CELL COUNT 4.76 10^6/uL (4.40-6.38); RED CELL DISTRIBUTION WIDTH 13.7 % (11.5-15.2)
[2016-03-28 04:53] LABS: APTT 29.8 SEC (23.0-38.0); INR 0.97 (0.83-1.16); PROTIME(PATIENT) 12.8 SEC (12.0-15.0)
[2016-03-28 05:07] LABS: ANION GAP 5 mEq/L (8-16); CALCIUM 8.8 mg/dL (8.5-10.4); CARBON DIOXIDE 28 mEq/l (22-31); CHLORIDE 107 mEq/L (97-110); CHOLESTEROL 213 mg/dL (140-220); CHOLESTEROL/HDL RATIO 5.92 RATIO (1.00-4.97); CREATININE 0.8 mg/dL (0.7-1.3); GLOMERULAR FILTRATION RATE > 60; GLUCOSE 100 mg/dL (70-100); HIGH DENSITY LIPOPROTEIN 36 mg/dL (40-65); LDL/HDL RATIO 4.33 RATIO (1.00-3.64); LOW DENSITY LIPOPROTEIN 156 mg/dL (80-100); MAGNESIUM 1.9 mg/dL (1.6-2.3); NON-HIGH DENSITY LIPOPROTEIN 177 mg/dL (90-129); POTASSIUM 5.1 mEq/L (3.5-5.2); SODIUM 140 mEq/L (134-144); TRIGLYCERIDE 105 mg/dL (40-150); VERY LOW DENSITY LIPOPROTEINS 21 mg/dL (8-25)
--- NOTE | 2016-03-28 08:36 | CPEKG ---
Heart Rate: 60 RR Interval: 1000 P-R Interval: 152 QRSD Interval: 102 QT Interval: 428 QTC Interval: 428 P [place]: 40 QRS [place]: 42 T Wave [place]: -20 EKG Severity - BORDERLINE ECG - EKG Impression: SINUS RHYTHM EKG Impression: BORDERLINE T ABNORMALITIES, INFERIOR LEADS Electronically Signed By: Stepan Brock 28-Mar-2016 15:49:12
[2016-03-28] MEDS: Fluticasone/Vilanterol [Breo Ellipta 200-25 Mcg Inh] 1 EACH IH SCH (08:54)
[2016-03-28] MEDS: morphINE SR 30 MG TAB PO SCH ×2 (09:13→20:00)
[2016-03-28] MEDS: morphINE SR 15 MG TAB PO SCH ×2 (09:13→20:00)
[2016-03-28] MEDS: buPROPion XL 150 MG TAB PO SCH ×2 (09:14→20:01)
[2016-03-28] MEDS: FLUoxetine 20 MG CAP PO SCH ×2 (09:14→20:01)
[2016-03-28] MEDS: ATORVASTATIN CALCIUM 40 MG TAB PO SCH (09:14)
[2016-03-28] MEDS: ASPIRIN EC 325 MG TAB PO SCH (09:14)
[2016-03-28] MEDS: LISINOPRIL 20 MG TAB PO SCH (09:14)
[2016-03-28] MEDS: ENOXAPARIN 40 MG/0.4 ML SYR SC SCH (09:15)
[2016-03-28] MEDS: TESTOSTERONE TD SCH (09:40)
[2016-03-28] MEDS ORDERED: LIDOCAINE 1% 30 ML SDV ONE (11:24)
[2016-03-28] MEDS ORDERED: MIDAZOLAM 2 MG/2 ML VIAL ONE ×2 (11:25→12:54)
[2016-03-28] MEDS ORDERED: HEPARIN 10,000 UNIT/10 ML MDV ONE (11:25)
[2016-03-28] MEDS ORDERED: VERAPAMIL 5 MG/2 ML VIAL ONE (11:25)
[2016-03-28] MEDS ORDERED: IOPAMIDOL (ISOVUE-370) 150 ML BTL IV ONE ×2 (11:25→12:09)
[2016-03-28] MEDS ORDERED: fentaNYL 100 MCG/2 ML INJ ONE ×2 (11:25→12:53)
[2016-03-28] MEDS ORDERED: diphenhydrAMINE 25 MG CAP PO ONE ×2 (11:30→15:00)
[2016-03-28] MEDS ORDERED: DIAZEPAM 5 MG TAB ONE (11:30)
[2016-03-28] MEDS ORDERED: FAMOTIDINE 20 MG TAB ONE (11:30)
--- NOTE | 2016-03-28 11:57 | SUROPNOTE ---
[facility]LL[facility] Operative Report - Surgery Date of Procedure: 03/28/16 Indication: This patient is a 70 year old man, with history of hypertension, COPD, chronic pain on chronic narcotic therapy, and ongoing cigarette smoking, who presented to the emergency department on 03/25/16 with acute dyspnea while clearing snow from his car. Initially had borderline elevated troponin, which trended upwards to 0.098, and subsequently has trended downward. Lexiscan nuclear stress test was abnormal, demonstrating a small area of reversible ischemia to the LV apex. Right/left heart catheterization secondary to [place] Cardiovascular class IV anginal equivalent, acute coronary syndrome, and intermediate risk nuclear stress test. Procedures performed: 1. Right and Left heart catheterization with left ventricular and selective coronary angiography. 2. Intracoronary stent placement x1 and high-pressure post-dilation balloon angioplasty in the right coronary artery. 3. Aortic root and ascending arch aortography Description of procedure: Description, risks, benefits and alternatives were discussed in detail. Informed consent was obtained. The patient was brought to the catheterization laboratory where a timeout was performed. The right arm was sterilely prepped and draped. 2% lidocaine utilized for local anesthetic. A 5-Haitian hemostatic sheath was placed in the right brachial vein utilizing the micropuncture technique. A 5-Haitian PWP catheter was utilized for right heart catheterization. Following the right heart catheterization, a 5/6-Haitian slender hemostatic sheath placed right radial artery utilizing micropuncture technique. Intraarterial verapamil and intravenous heparin was administered. Diagnostic coronary angiography performed with 6-Haitian, Sami left-3.5, Sami right-4, Sami left-4.5, Sami left-5 and AL1 catheter. Catheters passed over a 0.035 guidewire, J Glidewire, and an Amplatz wire. There was moderate difficulty navigating the wires and catheters to engage the coronaries secondary to unique, tortuous vasculature. There is an obvious culprit lesion of a xwrmpemw-zs-qpf 90% stenosis in the dominant right coronary artery. Intracoronary nitroglycerin and verapamil was administered to ensure that this did not represent catheter-induced spasm. No change was seen. Plans were made for percutaneous intervention. A 6-Haitian AL1 short tip guide catheter was utilized to engage the right coronary. A short VENNCOMM J wire was placed in the right coronary artery across the lesion. A 4.0mm x 28mm Synergy drug-eluding stent was chosen and carefully positioned in the proximal right coronary artery to cover the severe lesion. This was deployed to 18 atmospheres for 15 seconds. Next, a 4.0mm x 15mm NC Emerge balloon was placed in the proximal right coronary for high-pressure post- dilation of the stented segment, utilized for 4 inflations to a maximum of 25 atmospheres. There was excellent result, with 0% residual stenosis by angiography. Final orthogonal angiography was performed. A 5-Haitian 145cm Pigtail catheter was then utilized for left heart catheterization and left ventricular angiography. Aortic root and ascending arch aortography was also performed. Arterial sheath was removed and TR band was placed. Venous sheath was removed in the CVC. Findings: 1. Hemodynamics: Right atrial pressure mean of 12, right ventricular pressure 64/9/15 end-diastolic, pulmonary artery pressure 67/29, mean of 46, pulmonary capillary wedge pressure mean of 15 with no significant V wave. Aortic pressure 101/63, mean of 81, left ventricular pressure 105/12/18 end-diastolic. There was no significant pull back gradient across the aortic valve. 2. Saturations: Superior vena cava 70.2%, main pulmonary artery 68.5%, Ao 92.2% . Assumed Lenora cardiac output 6.71L/min with cardiac index of 2.96L/min/m2. 2. Left ventricle and aortic root/ascending arch aortography: The left ventricle appears normal in size. Left ventricle is normal shape. Segmental wall motion is normal with an ejection fraction of 60%. There are no filling defects or significant mitral regurgitation. {{{{{The aortic root and aortic arch is abnormal, demonstrating a }}}}} 3. Coronary angiography: Left main: The left main is extremely short and bifurcating (near non-existent, almost separate ostia) 4. Left anterior descending: This is a moderately large vessel continuing around the apex. There is a large first diagonal, small second diagonal, and moderately large third diagonal branch. The left anterior descending contains a mid 30% stenosis, otherwise mild luminal irregularities. 5. Circumflex: The circumflex is nondominant. It has a moderate first obtuse marginal branch, large bifurcating second obtuse marginal branch, and a moderate posterolateral bifurcating system. The circumflex, just proximal to the first obtuse marginal, contains a 60% eccentric stenosis. The principle marginal branch contains a 75% eccentric stenosis. The remainder of the circumflex contains mild luminal irregularities. 6. Right coronary: Large dominant vessel. There is a proximal-mid 90% stenosis. 7. Percutaneous intervention: Guided by angiography, a single drug-eluding stent was placed in the proximal right coronary artery followed by high- pressure post-dilation balloon angioplasty, with excellent result and 0% residual stenosis demonstrated by angiography. Overall Impression: 1. Severe pulmonary hypertension, with systolic pulmonary artery pressure of 67mmHg. 2. Severe 90% stenosis in the proximal right coronary artery, treated with a single drug-eluding stent followed by high-pressure post-dilation balloon angioplasty, with excellent result and 0% residual stenosis demonstrated by angiography. 3. Moderate coronary artery disease in the circumflex and principle obtuse marginal branch. Otherwise, mild disease in the remainder of the circumflex and in the left anterior descending. 4. Normal left ventricular systolic function with ejection fraction of 60%. 5. {{{{{Abnormal aortic arch appearance}}}}} Plan: 1. Dual anti-platelet therapy 2. Aggressive risk modification and high dose statin therapy. 3. Referral to pulmonology for treatment of COPD and pulmonary hypertension. 4. Close clinical follow up. Portions of this chart were entered by a scribe. I have reviewed this chart and agree with the documentation. Report scribed for Dr. Erwin Galindo. Report scribed by Emmanuelle Armstrong.
[2016-03-28] MEDS ORDERED: NITROGLYCERIN 1,500 MCG/15 ML VIAL MISC ONE (12:09)
[2016-03-28] MEDS ORDERED: PRASUGREL HCL 10 MG TAB ONE (13:12)
[2016-03-28] MEDS ORDERED: NITROGLYCERIN 0.4 MG BTL SL PRN (13:39)
[2016-03-28] MEDS ORDERED: HYDROCODONE/APAP 5/325 TAB PO PRN (13:39)
[2016-03-28] MEDS ORDERED: ONDANSETRON 4 MG/2 ML VIAL IVP PRN (13:39)
[2016-03-28] MEDS ORDERED: ATROPINE SULFATE 1 MG/10 ML SYR IVP PRN (13:39)
[2016-03-28] MEDS ORDERED: TEMAZEPAM 15 MG CAP PO PRN (13:39)
[2016-03-28] MEDS ORDERED: LORazepam 2 MG/ML INJ IVP PRN (13:39)
[2016-03-28] MEDS ORDERED: PRASUGREL HCL 10 MG TAB PO ONE (13:39)
[2016-03-28] MEDS ORDERED: D5W 1/2 NS 1,000 ML IV SCH (13:45)
--- NOTE | 2016-03-28 13:53 | CPEKG ---
Heart Rate: 59 RR Interval: 1017 P-R Interval: 160 QRSD Interval: 98 QT Interval: 436 QTC Interval: 432 P [place]: 36 QRS [place]: 28 T Wave [place]: -4 EKG Severity - BORDERLINE ECG - EKG Impression: SINUS RHYTHM EKG Impression: BORDERLINE T ABNORMALITIES, INFERIOR LEADS Electronically Signed By: Stepan Brock 28-Mar-2016 15:49:06
--- NOTE | 2016-03-28 14:53 | HOSPPROG ---
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 Had stenting done to RCA Objective: Vital Signs Temp Pulse Resp BP Pulse Ox 36.8 C 67 15 141/87 H 98 03/28/16 11:06 03/28/16 11:06 03/28/16 11:06 03/28/16 11:06 03/28/16 11:06 Laboratory Results 03/28/16 04:06 03/28/16 04:06 03/27/16 03/28/16 03/29/16 05:59 05:59 05:59 Intake Total 750 920 Output Total 150 Balance 600 920 PT 12.8 SEC (12.0-15.0) 03/28/16 04:06 INR 0.97 (0.83-1.16) 03/28/16 04:06 ICD10 Worksheet Patient Problems: Problems Problem Status Diagnosed Dyspnea Acute Elevated troponin Acute Acute renal failure syndrome Active Pain in cervical spine Active
[2016-03-28] MEDS ORDERED: DIAZEPAM 5 MG TAB PO ONE (15:00)
[2016-03-28] MEDS ORDERED: FAMOTIDINE 20 MG TAB PO ONE (15:00)
[2016-03-28] MEDS ORDERED: ASPIRIN EC 325 MG TAB PO ONE (15:00)
[2016-03-28] MEDS: OXYCODONE/APAP 5/325 TAB PO PRN (15:53)
[2016-03-28] MEDS: BACLOFEN 10 MG TAB PO SCH (19:59)
[2016-03-28] MEDS: FAMOTIDINE 20 MG TAB PO SCH (20:00)
[2016-03-29 05:09] LABS: % IMMATURE GRANULYOCYTES 0.3 % (0.0-1.1); ABSOLUTE IMMATURE GRANULOCYTES 0.02 10^3/uL (0.00-0.10); ADD DIFF? NO; ADD MORPH? NO; ADD SCAN? NO; ATYPICAL LYMPHOCYTE FLAG 0 (0-99); FRAGMENT RBC FLAG 0 (0-99); HEMATOCRIT 44.3 % (40.0-51.0); HEMOGLOBIN 14.6 g/dL (13.7-17.5); LEFT SHIFT FLG 0 (0-99); LIPEMIA HEMOLYSIS FLAG 80 (0-99); MEAN CELL HEMOGLOBIN 29.1 pg (27.9-34.1); MEAN CELL VOLUME 88.2 fL (81.5-99.8); MEAN PLATELET VOLUME 9.6 fL (8.7-11.7); PLATELET CLUMPS FLAG 0 (0-99); PLATELET COUNT 177 10^3/uL (150-400); RED BLOOD CELL COUNT 5.02 10^6/uL (4.40-6.38); RED CELL DISTRIBUTION WIDTH 13.6 % (11.5-15.2)
[2016-03-29 05:36] LABS: ALBUMIN 3.4 g/dL (3.5-5.0); ANION GAP 6 mEq/L (8-16); ASPARTATE AMINOTRANSFERASE 25 IU/L (17-59); BILIRUBIN,TOTAL 0.5 mg/dL (0.1-1.4); CALCIUM 8.9 mg/dL (8.5-10.4); CARBON DIOXIDE 30 mEq/l (22-31); CHLORIDE 107 mEq/L (97-110); CREATININE 0.9 mg/dL (0.7-1.3); GLOMERULAR FILTRATION RATE > 60; GLUCOSE 89 mg/dL (70-100); LACTATE DEHYDROGENASE 431 IU/L (313-618); POTASSIUM 4.6 mEq/L (3.5-5.2); SODIUM 143 mEq/L (134-144)
[2016-03-29] MEDS ORDERED: PRASUGREL HCL 10 MG TAB PO SCH (09:00)
[2016-03-29] MEDS ORDERED: ASPIRIN EC 325 MG TAB PO SCH (09:00)
[2016-03-29] MEDS: Fluticasone/Vilanterol [Breo Ellipta 200-25 Mcg Inh] 1 EACH IH SCH (09:01)
[2016-03-29] MEDS: TESTOSTERONE TD SCH (09:01)
[2016-03-29] MEDS: buPROPion XL 150 MG TAB PO SCH (09:02)
[2016-03-29] MEDS: FAMOTIDINE 20 MG TAB PO SCH (09:03)
[2016-03-29] MEDS: LISINOPRIL 20 MG TAB PO SCH (09:03)
[2016-03-29] MEDS: FLUoxetine 20 MG CAP PO SCH (09:03)
[2016-03-29] MEDS: ATORVASTATIN CALCIUM 40 MG TAB PO SCH (09:03)
[2016-03-29] MEDS: morphINE SR 15 MG TAB PO SCH (09:03)
[2016-03-29] MEDS: morphINE SR 30 MG TAB PO SCH (09:03)
--- NOTE | 2016-03-29 09:15 | CPEKG ---
Heart Rate: 74 RR Interval: 811 P-R Interval: 152 QRSD Interval: 94 QT Interval: 400 QTC Interval: 444 P [place]: 47 QRS [place]: 57 T Wave [place]: 28 EKG Severity - BORDERLINE ECG - EKG Impression: SINUS RHYTHM EKG Impression: non-specific T wave abnormalities throughout Electronically Signed By: Stepan Brock 29-Mar-2016 17:43:27
--- NOTE | 2016-03-29 09:46 | SOAPPROG ---
SOAP Progress Note Assessment/Plan: Assessment: Cardiology ([place]) 1. Admit w/ acute onset shortness of breath in the setting of mildly elevated serial troponins. 2. Abnormal Lexiscan nuclear imaging showing apical perfusion defect. 3. CAD s/p 4.0 x 28 mm LIZBETH x 1 dominant RCA. On DAPT w/ aspirin and Effient 10 mg/d. There is residual moderate Cx and mild LAD disease. 4. Hyperlipidemia. Atorvastatin 40 mg/d started this admission. 5. HTN. 6. Mild-moderate aortic stenosis. 7. Severe pulmonary HTN. 8. Asthma/COPD. 9. Long history of tobacco use, 50 pack years. 10. Chronic pain treated w/ Celebrex. Plan: 1. Continue aspirin 325 mg/d and Effient 10 mg/d. Plavix genetic testing pending. 2. Continue atorvastatin 40 mg/d. 3. 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 Paul Terrazas. 4. Office follow up in one week. 03/29/16 10:28 03/29/16 10:36 Subjective: Complaint of worsening shortness of breath overnight. ? anxiety. All diagnoses and treatments explained to his family friend. Right radial puncture site is uncomplicated. Objective: Vital Signs Temp Pulse Resp BP Pulse Ox 36.5 C 67 13 121/78 H 94 03/29/16 08:00 03/29/16 08:00 03/29/16 08:00 03/29/16 08:00 03/29/16 08:00 Laboratory Results 03/29/16 04:19 03/29/16 04:19 03/28/16 03/29/16 03/30/16 05:59 05:59 05:59 Intake Total 920 1600 Balance 920 1600 PT 12.8 SEC (12.0-15.0) 03/28/16 04:06 INR 0.97 (0.83-1.16) 03/28/16 04:06 - Time Spent With Patient Time Spent With Patient: 45 minutes in coordinating care, physical exam, and documentation. Physical Exam - Physical Exam General Appearance: WD/WN, alert, no apparent distress Respiratory: chest non-tender, decreased breath sounds, No crackles, No rales, No rhonchi Cardiac/Chest: normal peripheral pulses, regular rate, rhythm Peripheral Pulses: 1+: dorsalis-pedis (R), dorsalis-pedis (L) Abdomen: normal bowel sounds, non-tender, soft, No bruit Extremities: normal range of motion, non-tender, normal inspection, normal capillary refill Neuro/Psych: no motor/sensory deficits, alert, normal mood/affect, oriented x 3 ICD10 Worksheet Patient Problems: Problems Problem Status Diagnosed Dyspnea Acute Elevated troponin Acute Acute renal failure syndrome Active Pain in cervical spine Active
[2016-03-29 12:51] VITALS: TEMP 97.5
[2016-03-29] MEDS: OXYCODONE/APAP 5/325 TAB PO PRN (14:01)
[2016-03-29] MEDS: POLYETHYLENE GLYCOL 3350 17 GM PKT PO PRN (14:01)
[2016-03-29 15:09] VITALS: BP 113/80; PULSE 79; RESP 20; O2SAT 93
--- NOTE | 2016-03-29 18:19 | GDS ---
[f rep st] DISCHARGE SUMMARY DISCHARGE DIAGNOSES: 1. Unstable angina. 2. Right coronary artery stent. 3. Severe pulmonary hypertension. 4. Chronic obstructive pulmonary disease. 5. Chronic pain. HISTORY: A 70-year-old male who presented with shortness of breath while shoveling, as well as mild troponin elevation. HOSPITAL COURSE: The patient was admitted and troponins remained flat. He had a stress test that wa s abnormal and thus required resting images that were done on Monday. There were some mild abnormali ties and thus Cardiology was consulted. He underwent angiogram the following day, which showed high -grade stenosis of the right coronary artery. This was stented. He was also found to have severe pu lmonary hypertension. He is doing okay, although he still continues to have shortness of breath on e xertion which I think is due to his pulmonary hypertension and possible COPD. He does see Dr. Mar Casas outpatient and it is recommended that he see him again. He says he had a sleep study [place], which did not show sleep apnea. DISPOSITION: Home. DISCHARGE MEDICATIONS: He is to resume his home medications. In addition, he will be given Lipitor and Effient. FOLLOWUP INSTRUCTIONS: He is to follow up with his primary care doctor, as well as Gerhard, and Cardiology. TIME SPENT: Greater than 30 minutes were spent in discharge. /[id number]/MODL
[2016-04-01 05:27] LABS: 2C19S INTERPRETATION See Comments (())
== END 2016-03-29 18:20 | disposition home or self-care (01) | DRG 247 ==
LOC: EDUNIT# → F2W 19:56 → OBSVTOIN 03-26 20:58
PROVIDERS: ADMIT Internal Medicine; ATTEND Internal Medicine
PROC: 027034Z Dilation of Coronary Artery, One Artery with Drug-eluting Intraluminal Device, Percutaneous Approach (ICD-10-PCS; principal; 2016-03-28)
PROC: 4A023N8 Measurement of Cardiac Sampling and Pressure, Bilateral, Percutaneous Approach (ICD-10-PCS; principal; 2016-03-28)
PROC: B2111ZZ Fluoroscopy of Multiple Coronary Arteries using Low Osmolar Contrast (ICD-10-PCS; principal; 2016-03-28)
PROC: B2161ZZ Fluoroscopy of Right and Left Heart using Low Osmolar Contrast (ICD-10-PCS; principal; 2016-03-28)
DX: I25.110 Atherosclerotic heart disease of native coronary artery with unstable angina pectoris (principal); J44.9 Chronic obstructive pulmonary disease, unspecified; I10 Essential (primary) hypertension; G89.29 Other chronic pain; F11.20 Opioid dependence, uncomplicated; F17.210 Nicotine dependence, cigarettes, uncomplicated; I27.2 Other secondary pulmonary hypertension; E78.5 Hyperlipidemia, unspecified
CPT/HCPCS: 81225-90; A9500; C1725; C1769; C1874; C1887; C9600; G0378; J0461; J1644; J1650; J2250; J2785; J3010; Q9967

== ENCOUNTER → 2016-06-14 | Outpatient (CLI) | payer OTHER, MEDICAID | LOC: BMCIMAGING 08:22 | PROVIDERS: ATTEND Internal Medicine Cardiovascular Disease | DX: I25.10 Atherosclerotic heart disease of native coronary artery without angina pectoris (principal); Z87.891 Personal history of nicotine dependence; Z86.79 Personal history of other diseases of the circulatory system ==

== ENCOUNTER → 2016-07-29 | Outpatient (CLI) | payer OTHER, MEDICAID | LOC: FIMAGING 15:54 | PROVIDERS: ATTEND Physician Assistant Surgical | DX: Z53.8 Procedure and treatment not carried out for other reasons (principal); M54.12 Radiculopathy, cervical region ==

== ENCOUNTER 2017-07-21 21:14 | Emergency (ER) | payer OTHER, MEDICAID ==
[2017-07-21] MEDS ORDERED: NS 1,000 ML IV ONE (21:47)
[2017-07-21] MEDS ORDERED: IPRATROPIUM/ALBUTEROL 3 ML DEYVIAL IH ONE (21:47)
--- NOTE | 2017-07-21 21:49 | EDPHY ---
H & P Stated Complaint: SOB xfew days, bilateral leg cramping Source: Patient Exam Limitations: No limitations - Personal History Current Tetanus/Diphtheria Vaccine: Yes - Medical/Surgical History Hx Asthma: No Hx Chronic Respiratory Disease: Yes Hx Diabetes: No Hx Cardiac Disease: Yes Hx Renal Disease: No Hx Cirrhosis: No Hx Alcoholism: No Hx HIV/AIDS: No Hx Splenectomy or Spleen Trauma: No Other PMH: HTN, chronic back pain ruptured disc & stonosis, kidney stones, COPD , Prostate, Lung nodules, osteoporosis, stent - Family History Significant Family History: No pertinent family hx - Social History Smoking Status: Current every day smoker Alcohol Use: Sober Drug Use: None Time Seen by Provider: 07/21/17 21:41 HPI/ROS: CHIEF COMPLAINT: Shortness of breath, leg cramping HISTORY OF PRESENT ILLNESS: The patient is a 71-year-old man with a history of hypertension, COPD, pulmonary hypertension and a single cardiac stent as well as chronic pain with narcotic dependency. He comes to the emergency department stating that he has had shortness of breath with exertion over the last few weeks. No chest pain or palpitations. He also states that he has leg cramping occasionally and that tends to be in his thighs. This is been happening for the last month. 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 No cough, no fever. He also reports that he if he had a metered dose inhaler with him he would not need to come here. REVIEW OF SYSTEMS: Constitutional: denies: chills, fever, recent illness, recent injury EENTM: denies: blurred vision, double vision, nose congestion Respiratory: See HPI Cardiac: denies: chest pain, irregular heart rate, lightheadedness, palpitations Gastrointestinal/Abdominal: denies: abdominal pain, diarrhea, nausea, vomiting, blood streaked stools Genitourinary: denies: dysuria, frequency, hematuria, pain Musculoskeletal: denies: joint pain, muscle pain Skin: denies: lesions, rash, jaundice, bruising Neurological: denies: headache, numbness, paresthesia, tingling, dizziness, weakness Hematologic/Lymphatic: denies: blood clots, easy bleeding, easy bruising Immunologic/allergic: denies: HIV/AIDS, transplant EXAM: GENERAL: Disheveled, obese and in no acute distress. HEAD: Atraumatic, normocephalic. EYES: Pupils equal round and reactive to light, extraocular movements intact, sclera anicteric, conjunctiva are normal. ENT: TMs normal, nares patent, oropharynx clear without exudates. Moist mucous membranes. NECK: Normal range of motion, supple without lymphadenopathy or JVD. LUNGS: Breath sounds clear to auscultation bilaterally and equal. No wheezes rales or rhonchi. HEART: Regular rate and rhythm without murmurs, rubs or gallops. ABDOMEN: Soft, nontender, normoactive bowel sounds. No guarding, no rebound. No masses appreciated. BACK: No CVA tenderness, no spinal tenderness, step-offs or deformities EXTREMITIES: Normal range of motion, no pitting or edema. No clubbing or cyanosis. NEUROLOGICAL: Cranial nerves II through XII grossly intact. Normal speech, normal gait. 5/5 strength, normal movement in all extremities, normal sensation PSYCH: Normal mood, normal affect. SKIN: Warm, dry, normal turgor, no visible rashes or lesions. (Raffi Olivia) Constitutional: Initial Vital Signs Temperature (C) 37.5 C 07/21/17 21:15 Heart Rate 74 07/21/17 21:15 Respiratory Rate 26 H 07/21/17 21:15 Blood Pressure 154/79 H 07/21/17 21:15 O2 Sat (%) 93 07/21/17 21:15 O2 Delivery Mode Room Air Allergies/Adverse Reactions: prednisone Allergy (Verified 07/21/17 21:21) Home Medications: Medication Instructions Recorded Lisinopril [Zestril 20 mg (*)] 20 mg PO DAILY 08/27/12 celeCOXIB [Celebrex (*)] 400 mg PO DAILY 08/27/12 morphINE SR [MS Contin/Oramorph SR 30 mg PO BID 06/17/13 30 mg (*)] morphINE SR [Ms Contin/Oramorph 15 15 mg PO BID 06/18/13 mg (*)] Baclofen [Baclofen 10 mg (*)] 10 - 15 mg PO HS 03/25/16 Fluticasone/Vilanterol [Breo 1 each IH DAILY 03/25/16 Ellipta 200-25 Mcg INH] Polyethylene Glycol 3350 [Miralax 17 gm PO DAILY PRN 03/25/16 17 gm (*)] Testosterone [Androderm 4 mg patch] 4 each TD DAILY 03/25/16 morphINE SR [MS Contin/Oramorph SR 30 mg PO DAILY PRN 03/25/16 30 mg (*)] Aspirin EC [Aspirin EC 81 mg (*)] 81 mg PO DAILY #0 tab 03/29/16 Atorvastatin Calcium [Lipitor 40 40 mg PO DAILY #30 tab 03/29/16 mg (*)] Prasugrel HCl [Effient 10mg (*)] 10 mg PO DAILY #30 tab 03/29/16 Azithromycin [Zithromax] 250 mg PO DAILY #6 tab 07/21/17 Medical Decision Making - Diagnostics EKG Interpretation: An EKG obtained and was read and documented in trace view. Please see trace view for full reading and report. Sinus rhythm, no acute ischemic changes ( Raffi Olivia) ED Course/Re-evaluation: 2246: Patient was signed over to me at 10:00 p.m. Shift change follow-up patient's blood work and reassess patient. His blood work is reassuring as a negative troponin. Normal D-dimer. A chest x -ray that is unremarkable for pneumonia. No evidence of heart failure on exam. I did go and speak with him he speaking in full sentences his room air saturation is 98%. Heart rate is 78. He states he feels much better after a breathing treatment. I did reexamine his lungs they are clear bilaterally. He states he feels much better. He seemed IV fluids for hydration. He currently denies any complaints and is eager to be discharged home. X-ray of the chest reviewed. Negative for pneumonia. Plan will be abuse her inhaler 2 puffs every 4 hr as needed for shortness of breath and cough. Azithromycin. Treat for COPD exacerbation. Return precautions discussed with the patient understands return emergency room if develops worsening shortness of breath, fever, vomiting or not feeling well. (Jose Miguel Alvarez) - Data Points Laboratory Results: Laboratory Results 07/21/17 21:58 07/21/17 21:58 Medications Given: Discontinued Medications Albuterol Sulfate (Proventil Inh Prepack) 1 mdi TAKEHOME EDNOW ONE Stop: 07/21/17 22:49 Last Admin: 07/21/17 23:24 Dose: 1 mdi Albuterol/Ipratropium (Duoneb) 3 ml IH EDNOW ONE Stop: 07/21/17 21:48 Last Admin: 07/21/17 22:01 Dose: 3 ml Sodium Chloride (Ns) 1,000 mls @ 0 mls/hr IV ONCE ONE; Wide Open PRN Reason: Protocol Stop: 07/21/17 21:48 Last Admin: 07/21/17 22:00 Dose: 1,000 mls Departure - Departure Disposition: Home, Routine, Self-Care Clinical Impression: Dyspnea Qualifiers: Dyspnea type: unspecified Qualified Code(s): R06.00 - Dyspnea, unspecified COPD (chronic obstructive pulmonary disease) Qualifiers: COPD type: unspecified COPD Qualified Code(s): J44.9 - Chronic obstructive pulmonary disease, unspecified Condition: Good Instructions: Albuterol (By breathing), COPD (Chronic Obstructive Pulmonary Disease) (ED), Dyspnea (ED) Additional Instructions: 1. Return emergency room if you have worsening symptoms includes worsening pain , shortness of breath, fever 2. Stay well-hydrated. 3. Albuterol inhaler 2 puffs every 4 hr as needed for shortness of breath and wheezing. Referrals: Stanley Lewis MD [Primary Care Provider] - As per Instructions Prescriptions: Azithromycin [Zithromax] 250 mg PO DAILY #6 tab
--- NOTE | 2017-07-21 21:57 | CPEKG ---
Heart Rate: 65 RR Interval: 923 P-R Interval: 148 QRSD Interval: 92 QT Interval: 408 QTC Interval: 425 P [place]: 55 QRS [place]: 51 T Wave [place]: 41 EKG Severity - NORMAL ECG - EKG Impression: SINUS RHYTHM Electronically Signed By: Raffi Olivia 21-Jul-2017 21:59:06
[2017-07-21 22:13] LABS: PLATELET COUNT 161 10^3/uL (150-400)
[2017-07-21 22:22] LABS: INR 0.98 (0.83-1.16); PROTIME(PATIENT) 13.2 SEC (12.0-15.0)
[2017-07-21] MEDS ORDERED: ALBUTEROL INH PREPACK MDI TAKEHOME ONE ×2 (22:48→23:18)
[2017-07-22 00:03] VITALS: BP 139/71
== END 2017-07-22 00:16 | disposition home or self-care (01) ==
DX: J44.9 Chronic obstructive pulmonary disease, unspecified (principal); I10 Essential (primary) hypertension; F17.200 Nicotine dependence, unspecified, uncomplicated; E86.9 Volume depletion, unspecified; Z79.82 Long term (current) use of aspirin; Z95.5 Presence of coronary angioplasty implant and graft

== ENCOUNTER 2017-07-23 15:19 | Emergency (ER) | payer OTHER, MEDICAID ==
--- NOTE | 2017-07-23 16:37 | EDPHY ---
H & P Time Seen by Provider: 07/23/17 16:00 HPI/ROS: CHIEF COMPLAINT: Diarrhea HISTORY OF PRESENT ILLNESS: Patient is a 71-year-old male who presents emergency department with diarrhea. The patient states he recently started azithromycin because his doctor"thought I was infected."The patient is unsure of the exact reason for taking azithromycin. However, the patient has noted that he developed diarrhea 2 days after starting azithromycin. He has diarrhea roughly 4 times a day. It is nonbloody. He has no abdominal pain. No fevers or chills. No dysuria frequency. Patient denies chest pain or shortness of breath. No rash REVIEW OF SYSTEMS: My complete review of systems is negative except as mentioned in the HPI. Past Medical/Surgical History: Includes hypertension, chronic back pain, kidney stones, COPD, prostate cancer, lung nodules, osteoporosis coronary artery disease Smoking Status: Current every day smoker Physical Exam: Vitals noted GENERAL: Well-appearing, in no acute distress, alert. HEENT: Eyes normal to inspection, normal pharynx, no signs of dehydration. NECK: [No thyromegaly, no lymphadenopathy, supple. RESPIRATORY: Clear to auscultation bilaterally, no rales, rhonchi or wheezing. CVS: Regular rate and rhythm, no rubs, murmurs, or gallops. ABDOMEN: Soft, nontender, nondistended, no organomegaly. Benign BACK: Normal to inspection, no CVA tenderness. SKIN: Normal color, no rash, warm, dry. No pallor. EXTREMITIES: No pedal edema, no calf tenderness, no Homans sign or cords, no joint swelling. NEURO/PSYCH: Alert and oriented x3, normal mood and affect, normal motor sensory exam. No obvious cranial nerve deficit. Constitutional: Initial Vital Signs Temperature (C) 36.7 C 07/23/17 15:31 Heart Rate 94 07/23/17 15:31 Respiratory Rate 18 07/23/17 15:31 Blood Pressure 118/66 07/23/17 15:31 O2 Sat (%) 92 07/23/17 15:31 O2 Delivery Mode Room Air Allergies/Adverse Reactions: prednisone Allergy (Verified 07/23/17 15:30) Home Medications: Medication Instructions Recorded Lisinopril [Zestril 20 mg (*)] 20 mg PO DAILY 08/27/12 celeCOXIB [Celebrex (*)] 400 mg PO DAILY 08/27/12 morphINE SR [MS Contin/Oramorph SR 30 mg PO BID 06/17/13 30 mg (*)] morphINE SR [Ms Contin/Oramorph 15 15 mg PO BID 06/18/13 mg (*)] Baclofen [Baclofen 10 mg (*)] 10 - 15 mg PO HS 03/25/16 Fluticasone/Vilanterol [Breo 1 each IH DAILY 03/25/16 Ellipta 200-25 Mcg INH] Polyethylene Glycol 3350 [Miralax 17 gm PO DAILY PRN 03/25/16 17 gm (*)] Testosterone [Androderm 4 mg patch] 4 each TD DAILY 03/25/16 morphINE SR [MS Contin/Oramorph SR 30 mg PO DAILY PRN 03/25/16 30 mg (*)] Aspirin EC [Aspirin EC 81 mg (*)] 81 mg PO DAILY #0 tab 03/29/16 Atorvastatin Calcium [Lipitor 40 40 mg PO DAILY #30 tab 03/29/16 mg (*)] Prasugrel HCl [Effient 10mg (*)] 10 mg PO DAILY #30 tab 03/29/16 Azithromycin [Zithromax] 250 mg PO DAILY #6 tab 07/21/17 Medical Decision Making ED Course/Re-evaluation: In the emergency department I discussed possible etiologies with the patient. I answered all his questions. The patient appears well on exam. He has no abdominal tenderness. I do not feel the patient needs laboratory studies drawn at this time. The patient will continue his azithromycin. However, the patient was started Imodium. He was given warnings prior to leaving. He will return with worsening symptoms. Differential Diagnosis: My differential includes but is not limited to infectious diarrhea, medication reaction, electrolyte abnormality, dehydration Departure - Departure Disposition: Home, Routine, Self-Care Clinical Impression: Diarrhea Qualifiers: Diarrhea type: unspecified type Qualified Code(s): R19.7 - Diarrhea, unspecified Condition: Good Instructions: Acute Diarrhea (ED) Additional Instructions: Continue your antibiotic. Start Imodium to help with your symptoms. You should follow the instructions written down on the Imodium box. Referrals: [facility],. [Clinic] - As per Instructions
[2017-07-23 16:47] VITALS: BP 125/70
== END 2017-07-23 16:47 | disposition home or self-care (01) ==
DX: R19.7 Diarrhea, unspecified (principal); I10 Essential (primary) hypertension; J44.9 Chronic obstructive pulmonary disease, unspecified; I25.10 Atherosclerotic heart disease of native coronary artery without angina pectoris; F17.200 Nicotine dependence, unspecified, uncomplicated; Z79.82 Long term (current) use of aspirin; Z85.46 Personal history of malignant neoplasm of prostate

== ENCOUNTER → 2017-07-26 | Outpatient (CLI) | payer OTHER, MEDICAID | LOC: FIMAGING 15:52 | PROVIDERS: ATTEND Internal Medicine Pulmonary Disease | DX: Z09 Encounter for follow-up examination after completed treatment for conditions other than malignant neoplasm (principal); R91.1 Solitary pulmonary nodule; J43.9 Emphysema, unspecified ==

== ENCOUNTER 2017-07-27 15:15 | Emergency (ER) | payer OTHER, MEDICAID ==
[2017-07-27] MEDS ORDERED: NS 1,000 ML IV ONE (17:06)
[2017-07-27] MEDS ORDERED: LORazepam 2 MG/ML INJ IVP ONE (17:12)
--- NOTE | 2017-07-27 17:15 | EDPHY ---
H & P Stated Complaint: diarrhea, anxiety Source: Patient, Old records Exam Limitations: No limitations - Personal History Current Tetanus/Diphtheria Vaccine: Yes Current Tetanus Diphtheria and Acellular Pertussis (TDAP): Yes - Medical/Surgical History Hx Asthma: No Hx Chronic Respiratory Disease: Yes Hx Diabetes: No Hx Cardiac Disease: Yes Hx Renal Disease: No Hx Cirrhosis: No Hx Alcoholism: No Hx HIV/AIDS: No Hx Splenectomy or Spleen Trauma: No Other PMH: HTN, chronic back pain ruptured disc & stonosis, kidney stones, COPD , Prostate, Lung nodules, osteoporosis, stent - Social History Smoking Status: Current every day smoker Time Seen by Provider: 07/27/17 17:12 HPI/ROS: HPI: This is a 8-year-old male who presents with Chief Complaint: Diarrhea and anxiety Location: GI Quality: Diarrhea Duration: 6 or 7 days Signs and Symptoms: no fever, no nausea, no vomiting, no hematemesis, no blood in stool, no abdominal bloating, + diarrhea 3-4 times per day, no back pain, no urinary symptoms, no testicular/groin pain, no indigestion, no chest pain, no shortness of breath Timing: Acute, intermittent episodes Severity: Moderate Context: Patient presents to the emergency room with complaints of continued loose stools for the past 6 or 7 days. He reports that he is having approximately 3-4 loose stools per day. Denies any blood in his stool/ hematemesis/fever/abdominal pain/urinary symptoms. He reports that approximately 1-2 days before starting azithromycin he started to have diarrhea. He went to see his primary care provider and was put on azithromycin for unknown reasons. He finished a 5 day course yesterday. He was seen in this emergency room on 07/23/2017 for similar complaints. At that time he was advised to finish the azithromycin and to take Imodium. He is not taking Imodium at all for his symptoms. Denies any foreign travel. He drinks tomato juice prior to coming to the emergency room and had a loose stool while in the emergency room waiting room. Modifying Factors: None Comment: ROS: see HPI Constitutional: No fever, no chills, no weight loss Eyes: No blurred vision Respiratory: No shortness of breath, no cough Cardiovascular: No chest pain, no palpitations Gastrointestinal: No nausea, no vomiting, no diarrhea, no hematemesis, no blood in stool Genitourinary: No dysuria, no blood in urine Extremities: No myalgias, no edema Neurologic: No weakness, no numbness Skin: No rashes, no petechiae Hematologic: No bruising, no bleeding MEDICAL/SURGICAL/SOCIAL HISTORY: Medical history: HTN, chronic back pain ruptured disc & stenosis, kidney stones , COPD, Prostate, Lung nodules, osteoporosis Surgical history: Cardiac stent Social history: Retired. Lives alone. Family history noncontributory. CONSTITUTIONAL: Nontoxic extremely well-appearing elderly white obese male, awake and alert, no obvious distress HEENT: Atraumatic and normocephalic, PERRL, EOMI. Nares patent; no rhinorrhea; no nasal mucosal edema. Tympanic membranes clear. Oropharynx clear, no exudate and moist pink mucosa. Airway patent. No lymphadenopathy. No meningismus. Cardiovascular: Normal S1/S2, regular rate, regular rhythm, without murmur rub or gallop. PULMONARY/CHEST: Symmetrical and nontender. Clear to auscultation bilaterally. Good air movement. No accessory muscle usage. ABDOMEN: Soft, protuberant, nondistended, nontender, no rebound, no guarding, no peritoneal signs, no masses or organomegaly. No CVAT. Hyperactive bowel sounds heard x4. RECTAL: Politely refused EXTREMITIES: 2/2 pulses, strength 5/5, no deformities, no clubbing, no cyanosis or edema. NEUROLOGICAL: no focal neuro deficits. GCS 15. Ambulatory without any deficits. SKIN: Warm and dry, no erythema. no rash. Good capillary refill. (Cyndee Hung) Constitutional: Initial Vital Signs Temperature (C) 36.6 C 07/27/17 15:22 Heart Rate 92 07/27/17 15:22 Respiratory Rate 16 07/27/17 15:22 Blood Pressure 144/79 H 07/27/17 15:22 O2 Sat (%) 94 07/27/17 15:22 O2 Delivery Mode Room Air Allergies/Adverse Reactions: prednisone Allergy (Verified 07/27/17 15:22) Home Medications: Medication Instructions Recorded Lisinopril [Zestril 20 mg (*)] 20 mg PO DAILY 08/27/12 celeCOXIB [Celebrex (*)] 400 mg PO DAILY 08/27/12 morphINE SR [MS Contin/Oramorph SR 30 mg PO BID 06/17/13 30 mg (*)] morphINE SR [Ms Contin/Oramorph 15 15 mg PO BID 06/18/13 mg (*)] Baclofen [Baclofen 10 mg (*)] 10 - 15 mg PO HS 03/25/16 Fluticasone/Vilanterol [Breo 1 each IH DAILY 03/25/16 Ellipta 200-25 Mcg INH] Polyethylene Glycol 3350 [Miralax 17 gm PO DAILY PRN 03/25/16 17 gm (*)] Testosterone [Androderm 4 mg patch] 4 each TD DAILY 03/25/16 morphINE SR [MS Contin/Oramorph SR 30 mg PO DAILY PRN 03/25/16 30 mg (*)] Aspirin EC [Aspirin EC 81 mg (*)] 81 mg PO DAILY #0 tab 03/29/16 Atorvastatin Calcium [Lipitor 40 40 mg PO DAILY #30 tab 03/29/16 mg (*)] Prasugrel HCl [Effient 10mg (*)] 10 mg PO DAILY #30 tab 03/29/16 Azithromycin [Zithromax] 250 mg PO DAILY #6 tab 07/21/17 Ondansetron Odt [Zofran Odt 4 mg 4 mg PO Q4 PRN #12 tab 07/27/17 (*)] Medical Decision Making ED Course/Re-evaluation: The patient was evaluated and managed by the physician's registered dental assistant rda. My cosignature indicates that I reviewed the chart and I agree with the findings and plan of care as documented. I am the secondary supervising physician. ( Lizzeth Martinez) Vital signs reviewed upon arrival and no fever and no tachycardia. Given 1 L normal saline and IV Ativan 1 mg Labs, stool studies ordered including C diff. Placed on contact precautions. 1758: Notified by nurse that patient is feeling more anxious since that IV Ativan. IV Benadryl 50 mg given for extrapyramidal symptoms 1835: Patient walking around room pacing. Pulled IV out. Looked at home med list shows chronic opiate use. IM Dilaudid 1 mg given. Within 5-10 minutes; patient up walking around. Alert and oriented x4. No longer anxious with restless leg. At this point, I believe that patient is going through opiate withdrawal. 5: Reassessed patient. He now admits that he is on morphine SR 30 mg twice daily as well as morphine 30 mg every 8 hr. He reports that he feels is narcotics on the 16th or th of every month. He admits that he is running low and has not consistently taking his normal dose of morphine each day. Patient denies any abdominal pain abdomen is soft and nontender. Doubt surgical abdomen. This is clearly opiate withdrawal. Patient has been taking narcotics for more than 15 years chronic low back pain and spinal stenosis. Advised patient that he can follow up with primary care provider. Also [facility]. Does not meet M1 hold or Detainer criteria. Please note, patient was in the emergency room for 4.5 hr and was unable to give a stool sample. This patient was seen under the supervision of my secondary supervising physician. I evaluated care for this patient independently. (Cyndee Hung) Differential Diagnosis: Differential diagnosis includes but is not limited to viral gastroenteritis, bacterial gastroenteritis, the inflammatory bowel disease, ischemic bowel disease, C diff colitis. (Cyndee Hung) - Data Points Laboratory Results: Laboratory Results 07/27/17 17:17 07/27/17 17:17 07/27/17 07/27/17 17:17 17:17 WBC 7.64 10^3/uL 10^3/uL (3.80-9.50) RBC 4.88 10^6/uL 10^6/uL (4.40-6.38) Hgb 14.5 g/dL g/dL (13.7-17.5) Hct 42.8 % % (40.0-51.0) MCV 87.7 fL fL (81.5-99.8) MCH 29.7 pg pg (27.9-34.1) MCHC 33.9 g/dL g/dL (32.4-36.7) RDW 14.1 % % (11.5-15.2) Plt Count 185 10^3/uL 10^3/uL (150-400) MPV 9.8 fL fL (8.7-11.7) Neut % (Auto) 64.5 % % (39.3-74.2) Lymph % (Auto) 22.9 % % (15.0-45.0) Davidson % (Auto) 11.0 % % (4.5-13.0) Eos % (Auto) 1.0 % % (0.6-7.6) Baso % (Auto) 0.3 % % (0.3-1.7) Nucleat RBC Rel Count 0.0 % % (0.0-0.2) Absolute Neuts (auto) 4.93 10^3/uL 10^3/uL (1.70-6.50) Absolute Lymphs (auto) 1.75 10^3/uL 10^3/uL (1.00-3.00) Absolute Monos (auto) 0.84 10^3/uL H 10^3/uL (0.30-0.80) Absolute Eos (auto) 0.08 10^3/uL 10^3/uL (0.03-0.40) Absolute Basos (auto) 0.02 10^3/uL 10^3/uL (0.02-0.10) Absolute Nucleated RBC 0.00 10^3/uL 10^3/uL (0-0.01) Immature Gran % 0.3 % % (0.0-1.1) Immature Gran # 0.02 10^3/uL 10^3/uL (0.00-0.10) Sodium 143 mEq/L mEq/L (135-145) Potassium 4.2 mEq/L mEq/L (3.5-5.2) Chloride 109 mEq/L mEq/L (97-110) Carbon Dioxide 23 mEq/l mEq/l (22-31) Anion Gap 11 mEq/L mEq/L (8-16) BUN 14 mg/dL mg/dL (7-23) Creatinine 0.7 mg/dL mg/dL (0.7-1.3) Estimated GFR > 60 Glucose 117 mg/dL H mg/dL (70-100) Calcium 9.8 mg/dL mg/dL (8.5-10.4) Total Bilirubin 0.8 mg/dL mg/dL (0.1-1.4) Conjugated Bilirubin 0.3 mg/dL mg/dL (0.0-0.5) Unconjugated Bilirubin 0.5 mg/dL mg/dL (0.0-1.1) AST 34 IU/L IU/L (17-59) ALT 47 IU/L IU/L (21-72) Alkaline Phosphatase 77 IU/L IU/L (38-126) Total Protein 6.4 g/dL g/dL (6.3-8.2) Albumin 3.9 g/dL g/dL (3.5-5.0) Lipase 69 IU/L IU/L (23-300) Medications Given: Discontinued Medications Diphenhydramine HCl (Benadryl Injection) 50 mg IVP EDNOW ONE Stop: 07/27/17 17:59 Last Admin: 07/27/17 18:00 Dose: 50 mg Hydromorphone HCl (Dilaudid) 1 mg IM EDNOW ONE Stop: 07/27/17 18:26 Last Admin: 07/27/17 18:30 Dose: 1 mg Sodium Chloride (Ns) 1,000 mls @ 0 mls/hr IV EDNOW ONE; Wide Open PRN Reason: Protocol Stop: 07/27/17 17:07 Last Admin: 07/27/17 17:20 Dose: 1,000 mls Lorazepam (Ativan Injection) 1 mg IVP EDNOW ONE Stop: 07/27/17 17:13 Last Admin: 07/27/17 17:20 Dose: 1 mg Departure - Departure Disposition: Home, Routine, Self-Care Clinical Impression: Opiate withdrawal Condition: Good Instructions: Opioid Withdrawal (ED) Additional Instructions: Consume a minimum of 8-10 glasses of water or electrolyte fluid replacement drinks that include Gatorade, Powerade, Pedialyte. Eat a bland diet for the next 48 hours and then slowly advance as tolerated. Take Zofran 1 tab every 4 hours as needed for nausea, vomiting. Please monitor your prescription pain medications and take as directed. Follow-up with your primary care provider in the next 3-5 days. Return to the Emergency Room if symptoms do not resolve in the next 48-72 hours , you spike a fever > 102 F, or experience intractable abdominal pain/nausea/ vomiting. Referrals: PCP Not In,Dictionary [Medical Doctor] - As per Instructions Prescriptions: Ondansetron Odt [Zofran Odt 4 mg (*)] 4 mg PO Q4 PRN #12 tab PRN Reason: Nausea/Vomiting, Use 1st
[2017-07-27 17:27] LABS: PLATELET COUNT 185 10^3/uL (150-400)
[2017-07-27] MEDS ORDERED: HYDROmorphONE/DILAUDID 2 MG/ML INJ IM ONE (18:25)
[2017-07-27 20:11] VITALS: BP 107/62
== END 2017-07-27 20:24 | disposition home or self-care (01) ==
DX: F11.23 Opioid dependence with withdrawal (principal); E86.9 Volume depletion, unspecified; I10 Essential (primary) hypertension; J44.9 Chronic obstructive pulmonary disease, unspecified; F17.200 Nicotine dependence, unspecified, uncomplicated; Z79.82 Long term (current) use of aspirin; Z95.5 Presence of coronary angioplasty implant and graft
CPT/HCPCS: 96361; 96372; 96374; 96375; 99284; J1170; J1200; J2060

== ENCOUNTER → 2017-09-18 | Outpatient (CLI) | payer OTHER, MEDICAID | LOC: BHFA 15:30 | PROVIDERS: ATTEND Internal Medicine Cardiovascular Disease | DX: R25.2 Cramp and spasm (principal); M79.606 Pain in leg, unspecified ==

== ENCOUNTER → 2018-03-30 | Outpatient (CLI) | payer OTHER, MEDICAID | LOC: BHFA 13:15 | PROVIDERS: ATTEND Internal Medicine Cardiovascular Disease | DX: Q23.1 Congenital insufficiency of aortic valve (principal) ==

== ENCOUNTER → 2018-04-19 | Outpatient (CLI) | payer OTHER, MEDICAID ==
[~2018-04-19] MED LIST: IOHEXOL 350mgI/ML (OMNIPAQUE) 150 ML BTL IV ONE
== END ==
LOC: FIMAGING 13:30
PROVIDERS: ATTEND Internal Medicine Cardiovascular Disease
DX: I25.10 Atherosclerotic heart disease of native coronary artery without angina pectoris (principal); I51.7 Cardiomegaly; R91.1 Solitary pulmonary nodule; R91.8 Other nonspecific abnormal finding of lung field; I35.0 Nonrheumatic aortic (valve) stenosis; I27.20 Pulmonary hypertension, unspecified
CPT/HCPCS: 71275; Q9967; 82565-PO

== ENCOUNTER 2018-06-03 12:35 | Emergency (ER) | payer OTHER, MEDICAID ==
--- NOTE | 2018-06-03 15:47 | EDPHY ---
General Time Seen by Provider: 06/03/18 15:47 Narrative: CLINICAL IMPRESSION: Bilateral hand pain ASSESSMENT/PLAN: Patient is a 72-year-old male with a significant history of cervical and lumbar spinal stenosis, coronary artery disease, hypertension and bilateral carpal tunnel who presents to the emergency department with increased pain in his bilateral hands that has been escalating over the last 1-2 months. Patient is nontoxic-appearing, he is in no acute distress on arrival. Physical examination reveals grossly normal neurological exam with no focal deficit; positive Tinel' s bilaterally. No recent trauma to warrant imaging. Patient does have underlying spinal stenosis but his symptoms are isolated to his wrists and hands , low suspicion for cervical radicular pain. His history and physical examination is most consistent with bilateral hand pain likely related to underlying carpal tunnel. There was no evidence of acute fracture or traumatic injury, compartment syndrome, UE DVT, cellulitis, septic arthritis or neurovascular compromise. The patient admits to not wearing his wrist splints, he verbalizes understanding of importance of wearing them. He was given dexamethasone and oxycodone in the ED. PDMP reviewed- consistent [place] use without evidence of increased use/multi providers. Was given a prescription for 6 oxycodone as needed for breakthrough pain. He is well established with his PCP Dr. Lewis at [facility], has an appointment already scheduled for Monday. Return precautions discussed-patient to return to the emergency Department for significantly worsening or uncontrolled pain, significant swelling, numbness or tingling of the extremity, fever or for any other concerning symptom. The patient verbalizes understanding and he is in agreement with this plan. DIFFERENTIAL DX: Differential diagnosis including but not limited to radicular pain, trauma, carpal tunnel syndrome, ED COURSE: 1549: PDMP reviewed, consistent morphine sulfate both 15 and 30 mg use. No increased use, no evidence of multiple providers. 1622: On repeat examination patient is well-appearing. Will proceed with dexamethasone and oxycodone. He was provided a small amount of oxycodone for severe breakthrough pain, he will contact [facility] in regards to his pain contract to let them know he was in the emergency department for acute exacerbation of bilateral hand pain. 1625: Case discussed with Dr. Martinez CHIEF COMPLAINT: Bilateral hand pain HPI: Patient is a 72-year-old male with a significant history of cervical and lumbar spinal stenosis, coronary artery disease, hypertension and bilateral carpal tunnel who presents to the emergency department with increased pain in his bilateral hands that has been escalating over the last 1-2 months. Patient reports he has had multiple exacerbations of his carpal tunnel, has received multiple steroid injections in the past by his primary care provider with improvement. Last steroid injection was approximately 2 months ago with improvement. Over the last several days he has had increased pain which is now affecting his ability to sleep. Pain starts in his wrists and radiates to fingers, describes as "hot poker sensation". Last 2 days her has had pain in all fingers, now mostly in the right hand- thumb and pointer. Occasionally he will get pain that radiates up his right forearm. He denies any weakness, decreased sensation or saddle paresthesia. His neck and back pain are at their baseline, currently undergoing physical therapy. Denies any trauma or new injury. No recent procedures or fever. Reports he called [facility] and spoke to nurse, was told to some here for further evaluation. PAST MEDICAL HISTORY: Cervical and lumbar spinal stenosis, coronary artery disease, hypertension, carpal tunnel syndrome Family History: Noncontributory Social History: Denies alcohol or illicit drug use ROS: A full 10 point review of systems was negative except for those mentioned in HPI. PHYSICAL EXAM: General Appearance: Well developed, no acute distress. HENT: Normocephalic, atraumatic. External ears normal, nares clear. Oropharynx clear. Eyes: PERRLA, EOMI intact. Conjunctiva pink, no pallor or injection Neck: Supple, nontender, no lymphadenopathy, no midline pain on my exam, FROM. C1-4: sensation back of head/neck- no deficit C5: Deltoid (motor)- no deficit C6: Biceps (motor)- no deficit C7: Extend wrist/fingers- no deficit C8: Flex fingers- no deficit T1: move fingers apart- no deficit Respiratory: There are no retractions, lungs are clear to auscultation. Cardiac: Regular rate and rhythm, no murmurs or gallops. Gastrointestinal: Abdomen is soft, nontender, bowel sounds normal, no masses/ hernia, no rigidity, guarding or focal peritoneal findings. Skin: Warm, dry, no rashes, no nodules on palpation. Upper Extremities: Bilateral positive Tinel's. Intact distal pulses, Full range of motion intact, no ecchymosis or edema. Lower Extremities: Intact distal pulses, No edema, No tenderness, No cyanosis, full range of motion intact, No calf tenderness bilaterally. MEDICAL DECISION MAKING: Patient was seen independently. Secondary supervising physician at time of evaluation was Dr. Martinez, he did not evaluate this patient. Diagnosis: Bilateral hand pain. New, requires workup Summary: See Assessment and Plan for summary of ED visit Clinical lab tests: Not applicable. Independent visualization of images, tracing, or specimens: Not applicable. Decision to obtain medical records or history from someone other than the patient: No Review / Summarize previous medical records: Yes Discussed patient with another provider: Yes, Dr. Martinez Patient Progress: Stable, discharged. - History Smoking Status: Former smoker - Objective Vital Signs: Initial Vital Signs Temperature (C) 36.8 C 06/03/18 12:51 Heart Rate 76 06/03/18 12:51 Respiratory Rate 20 06/03/18 12:51 Blood Pressure 145/81 H 06/03/18 12:51 O2 Sat (%) 90 L 06/03/18 12:51 O2 Delivery Mode Room Air O2 (L/minute) 2 Allergies/Adverse Reactions: prednisone Allergy (Verified 06/03/18 12:51) Home Medications: Medication Instructions Recorded Lisinopril [Zestril 20 mg (*)] 20 mg PO DAILY 08/27/12 celeCOXIB [Celebrex (*)] 400 mg PO DAILY 08/27/12 morphINE SR [MS Contin/Oramorph SR 30 mg PO BID 06/17/13 30 mg (*)] morphINE SR [Ms Contin/Oramorph 15 15 mg PO BID 06/18/13 mg (*)] Baclofen [Baclofen 10 mg (*)] 10 - 15 mg PO HS 03/25/16 Fluticasone/Vilanterol [Breo 1 each IH DAILY 03/25/16 Ellipta 200-25 Mcg INH] Polyethylene Glycol 3350 [Miralax 17 gm PO DAILY PRN 03/25/16 17 gm (*)] Testosterone [Androderm 4 mg patch] 4 each TD DAILY 03/25/16 morphINE SR [MS Contin/Oramorph SR 30 mg PO DAILY PRN 03/25/16 30 mg (*)] Aspirin EC [Aspirin EC 81 mg (*)] 81 mg PO DAILY #0 tab 03/29/16 Atorvastatin Calcium [Lipitor 40 40 mg PO DAILY #30 tab 03/29/16 mg (*)] Prasugrel HCl [Effient 10mg (*)] 10 mg PO DAILY #30 tab 03/29/16 Azithromycin [Zithromax] 250 mg PO DAILY #6 tab 07/21/17 Ondansetron Odt [Zofran Odt 4 mg 4 mg PO Q4 PRN #12 tab 07/27/17 (*)] oxyCODONE IR [Oxycodone Ir (*)] 5 mg PO Q4-6PRN PRN #6 tab 06/03/18 Medications Given: Discontinued Medications Dexamethasone (Decadron) 10 mg PO EDNOW ONE Stop: 06/03/18 16:00 Last Admin: 06/03/18 16:12 Dose: 10 mg Oxycodone HCl (Oxycodone Ir) 5 mg PO EDNOW ONE Stop: 06/03/18 15:59 Last Admin: 06/03/18 16:12 Dose: 5 mg Departure - Departure Disposition: Home, Routine, Self-Care Clinical Impression: Carpal tunnel syndrome on both sides Condition: Good Instructions: Arthralgia (ED) Additional Instructions: DISCHARGE INSTRUCTIONS FROM YOUR DOCTOR Thank you for visiting our emergency department today. Please keep in mind that discharge from the emergency department does not mean that there is nothing wrong - it simply means that we have not identified an emergency condition that requires further evaluation or treatment in the hospital. Please follow-up with your primary care provider in the next 1-2 days for repeat examination. It is imperative that you continue wearing your wrist splints as previously prescribed to you for your carpal tunnel syndrome. Continue taking your medications as previously described. You have been prescribed oxycodone which is a narcotic. Please do not drive or operate machinery while taking this medication as it may make you drowsy. It can also be habit forming. This medication can also cause constipation, recommend taking 100 mg of Colace twice daily while taking this medication. People present with illnesses and injuries in different ways, and it is always possible that we have missed something. You may always return for re-evaluation if symptoms worsen or if they are not improving or if you develop new/different symptoms. Again, thank you for choosing our emergency department. We hope that you feel better. Referrals: Stanley Lewis MD [Primary Care Provider] - 1-2 days without fail Prescriptions: oxyCODONE IR [Oxycodone Ir (*)] 5 mg PO Q4-6PRN PRN #6 tab PRN Reason: Pain, Severe
[2018-06-03] MEDS ORDERED: oxyCODONE IR 5 MG TAB PO ONE (15:58)
[2018-06-03] MEDS ORDERED: DEXAMETHASONE 4 MG TAB PO ONE (15:59)
[2018-06-03 16:11] VITALS: BP 117/64
== END 2018-06-03 16:24 | disposition home or self-care (01) ==
DX: G56.03 Carpal tunnel syndrome, bilateral upper limbs (principal); I10 Essential (primary) hypertension

== ENCOUNTER 2018-06-04 16:16 | Emergency (ER) | payer OTHER, MEDICAID ==
--- NOTE | 2018-06-04 17:01 | EDPHY ---
H & P Stated Complaint: concerned about bowel movements Time Seen by Provider: 06/04/18 16:55 HPI/ROS: CHIEF COMPLAINT: Constipation HISTORY OF PRESENT ILLNESS: Patient is a 72-year-old man who states that he has had to use enemas to have bowel movements for last couple of days. He called an ambulance stating that he was worried about constipation but then was taking a shower when they came to get him. He initially declined coming but then eventually came. He is now in the room states that he is asymptomatic. He states that he did have a bowel movement today and feels much better. He is stable vital signs. No recent fevers or infections. He was seen here yesterday and given narcotics for carpal tunnel pain. He states that he has not been taking them other than the dose he got in the ER. Severity: Moderate Modifying factors: Resolved with enema REVIEW OF SYSTEMS: Constitutional: denies: chills, fever, recent illness, recent injury EENTM: denies: blurred vision, double vision, nose congestion Respiratory: denies: cough, shortness of breath Cardiac: denies: chest pain, irregular heart rate, lightheadedness, palpitations Gastrointestinal/Abdominal: See HPI denies: abdominal pain, diarrhea, nausea, vomiting, blood streaked stools Genitourinary: denies: dysuria, frequency, hematuria, pain Musculoskeletal: denies: joint pain, muscle pain Skin: denies: lesions, rash, jaundice, bruising Neurological: denies: headache, numbness, paresthesia, tingling, dizziness, weakness Hematologic/Lymphatic: denies: blood clots, easy bleeding, easy bruising Immunologic/allergic: denies: HIV/AIDS, transplant 10 systems reviewed and negative except as noted EXAM: GENERAL: Well-appearing, well-nourished and in no acute distress. HEAD: Atraumatic, normocephalic. EYES: Pupils equal round and reactive to light, extraocular movements intact, sclera anicteric, conjunctiva are normal. ENT: TMs normal, nares patent, oropharynx clear without exudates. Moist mucous membranes. NECK: Normal range of motion, supple without lymphadenopathy or JVD. LUNGS: Breath sounds clear to auscultation bilaterally and equal. No wheezes rales or rhonchi. HEART: Regular rate and rhythm without murmurs, rubs or gallops. ABDOMEN: Soft, nontender, normoactive bowel sounds. No guarding, no rebound. No masses appreciated. BACK: No CVA tenderness, no spinal tenderness, step-offs or deformities EXTREMITIES: Normal range of motion, no pitting or edema. No clubbing or cyanosis. NEUROLOGICAL: Cranial nerves II through XII grossly intact. Normal speech, normal gait. 5/5 strength, normal movement in all extremities, normal sensation , normal reflexes PSYCH: Normal mood, normal affect. SKIN: Warm, dry, normal turgor, no visible rashes or lesions. Source: Patient Exam Limitations: No limitations - Personal History Current Tetanus/Diphtheria Vaccine: Unsure Current Tetanus Diphtheria and Acellular Pertussis (TDAP): Unsure - Medical/Surgical History Hx Asthma: No Hx Chronic Respiratory Disease: Yes Hx Diabetes: No Hx Cardiac Disease: Yes Hx Renal Disease: No Hx Cirrhosis: No Hx Alcoholism: No Hx HIV/AIDS: No Hx Splenectomy or Spleen Trauma: No Other PMH: HTN, chronic back pain ruptured disc & stonosis, kidney stones, COPD , Prostate, Lung nodules, osteoporosis, stent - Social History Smoking Status: Former smoker Alcohol Use: None Constitutional: Initial Vital Signs Temperature (C) 36.7 C 06/04/18 16:23 Heart Rate 76 06/04/18 16:23 Respiratory Rate 16 06/04/18 16:23 Blood Pressure 118/80 06/04/18 16:23 O2 Sat (%) 95 06/04/18 16:23 O2 Delivery Mode Room Air Allergies/Adverse Reactions: prednisone Allergy (Verified 06/03/18 12:51) Home Medications: Medication Instructions Recorded Lisinopril [Zestril 20 mg (*)] 20 mg PO DAILY 08/27/12 celeCOXIB [Celebrex (*)] 400 mg PO DAILY 08/27/12 morphINE SR [MS Contin/Oramorph SR 30 mg PO BID 06/17/13 30 mg (*)] morphINE SR [Ms Contin/Oramorph 15 15 mg PO BID 06/18/13 mg (*)] Baclofen [Baclofen 10 mg (*)] 10 - 15 mg PO HS 03/25/16 Fluticasone/Vilanterol [Breo 1 each IH DAILY 03/25/16 Ellipta 200-25 Mcg INH] Polyethylene Glycol 3350 [Miralax 17 gm PO DAILY PRN 03/25/16 17 gm (*)] Testosterone [Androderm 4 mg patch] 4 each TD DAILY 03/25/16 morphINE SR [MS Contin/Oramorph SR 30 mg PO DAILY PRN 03/25/16 30 mg (*)] Aspirin EC [Aspirin EC 81 mg (*)] 81 mg PO DAILY #0 tab 03/29/16 Atorvastatin Calcium [Lipitor 40 40 mg PO DAILY #30 tab 03/29/16 mg (*)] Prasugrel HCl [Effient 10mg (*)] 10 mg PO DAILY #30 tab 03/29/16 Azithromycin [Zithromax] 250 mg PO DAILY #6 tab 07/21/17 Ondansetron Odt [Zofran Odt 4 mg 4 mg PO Q4 PRN #12 tab 07/27/17 (*)] oxyCODONE IR [Oxycodone Ir (*)] 5 mg PO Q4-6PRN PRN #6 tab 06/03/18 Medical Decision Making ED Course/Re-evaluation: 5:00 p.m. When I evaluated the patient he states that he is asymptomatic. It took me 10 min to get him off of his cell phone to be evaluated. We discussed potential causes for constipation as well as remedies. I encouraged over-the- counter MiraLax to use as tolerated. He is happy with this and declines further workup or testing. Differential Diagnosis: Partial list of the Differential diagnosis considered include but were not limited to; constipation, medication reaction and although unlikely based on the history and physical exam, I also considered ischemia, volvulus, obstruction. I discussed these differential diagnoses and the plan with the patient as well as the usual and expected course. The patient understands that the diagnosis is provisional and that in medicine we are not always correct and that further workup is often warranted. Usual and customary warnings were given. All of the patient's questions were answered. The patient was instructed to return to the emergency department should the symptoms at all worsen or return, otherwise to followup with the physician as we discussed. Departure - Departure Disposition: Home, Routine, Self-Care Clinical Impression: Constipation Qualifiers: Constipation type: unspecified constipation type Qualified Code(s): K59.00 - Constipation, unspecified Condition: Fair Instructions: Constipation (ED) Additional Instructions: Use MiraLax 1 cap full every hour until you have satisfactory results. Then decrease as tolerated. Referrals: Stanley Lewis MD [Primary Care Provider] - 2-3 days, call for appt.
[2018-06-04 17:08] VITALS: BP 118/87
--- NOTE | 2018-06-04 17:14 | ASMTCMCOM ---
CM Note CM Note Notes: Pt. seen by request. Pt in [facility] for carpel tunnel on 06/03 and arrived by [facility] today for constipation. [facility] reported that pt called 911 but he was in the shower and there was a burner lit on his stove when they arrived. When asked what brought him in he told ED RN Fanta because they brought me. He told CM that he called 911 because he was in so much pain from constipation and that they wouldnt let me drive. Pt lives alone in an apartment and uses home oxygen. He is currently able to drive. He has a group activities aide that assists him 3x per week who brought him to [facility] on 06/03. He reported that he sees Dr. Lewis at [facility] and that he came to the ED because his doctor was not in the office today. While speaking with the pt. [facility] returned his call to schedule an appointment. Pt indicated that he does not have additional needs at this time. Cab voucher used to return home. CM available if needed. Date Signed: 06/04/2018 05:09 PM Electronically Signed By:Vish Nielsen LCSW
== END 2018-06-04 17:16 | disposition home or self-care (01) ==
LOC: EDAGE → EDUNIT#
DX: K59.00 Constipation, unspecified (principal); I10 Essential (primary) hypertension

== ENCOUNTER 2018-06-22 12:37 | Day surgery (SDC) | payer OTHER, MEDICAID ==
[2018-06-22] MEDS ORDERED: LR 1,000 ML IV ONE (13:01)
[2018-06-22] MEDS ORDERED: BUPIVACAINE 0.5% 30 ML SDV ONE (14:03)
[2018-06-22] MEDS ORDERED: ceFAZolin 3 GM in D5W 100 ML IV ONE (15:06)
--- NOTE | 2018-06-22 15:06 | PDHPUP ---
History & Physical Update H&P update statement: This history and physical update is based on an assessment of the patient which was completed after admission or registration (within 24 hours), but prior to the surgery/procedure. H&P update: H&P reviewed & patient examined (No change in HorP)
[2018-06-22] MEDS ORDERED: CEFAZOLIN 1 GM/DEXTROSE/50 ML BAG IV ONE (15:10)
[2018-06-22] MEDS ORDERED: fentaNYL 100 MCG/2 ML INJ ONE (15:11)
[2018-06-22] MEDS ORDERED: PROPOFOL/EMULSION 500 MG/50 ML BOTTLE IV ONE (15:11)
--- NOTE | 2018-06-22 15:29 | PDANEPAE ---
ANE History of Present Illness 72 year old male with AAA, CAD, history of PR, COPD, +tob, Asthma and pulm htn for right carpal tunnel release. ANE Past Medical History - Cardiovascular History Hx Hypertension: Yes Hx Arrhythmias: No Hx Chest Pain: No Hx Coronary Artery / Peripheral Vascular Disease: No Hx CHF / Valvular Disease: Yes Hx Palpitations: No Cardiovascular History Comment: PULM HTN. murmur-. PR 03/2016. STENT 03/2016 - Pulmonary History Hx COPD: Yes Hx Asthma/Reactive Airway Disease: No Hx Recent Upper Respiratory Infection: No Hx Oxygen in Use at Home: Yes O2 in Use at Home (L/minute): 4.5 Hx Sleep Apnea: No Sleep Apnea Screening Result - Last Documented: Positive Pulmonary History Comment: HS OXYGEN. PULM NODULE - Neurologic History Hx Cerebrovascular Accident: No Hx Seizures: No Hx Dementia: No Neurologic History Comment: hx lumbar laminectomy. 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 pain to r foot up back of leg r/t neck stenosis- sciatic nerve. nerve pain back of arms,bilat. l ring finger pain. r thumb trigger thumb. complex stenosis. cant tell between hot and cold. gets p.t., steroid inj , massages. - Endocrine History Hx Diabetes: No - Renal History Hx Renal Disorders: Yes Renal History Comment: KIDNEY - Liver History Hx Hepatic Disorders: Yes Hepatic History Comment: hx hep a- many yrs ago. cleared. - Neurological & Psychiatric Hx Hx Neurological and Psychiatric Disorders: Yes Neurological / Psychiatric History Comment: major depression-10 yrs ago- - Cancer History Hx Cancer: Yes Cancer History Comment: SKIN - Congenital Disorder History Hx Congenital Disorders: No - GI History Hx Gastrointestinal Disorders: Yes Gastrointestinal History Comment: CONSTIPATION. HEMORRHOIDS - Other Health History Other Health History: CERVICAL/LUMBAR STENOSIS. MISSING TEETH. TANISHA HANDS NUMBNESS AND TINGLING. - Chronic Pain History Chronic Pain: Yes (TANISHA HANDS,CERVICAL AND SPINAL STENOSIS) - Surgical History Prior Surgeries: GREEN LIGHT LASER. LAMINECTOMY 1975. Lithotripsy. plastic surgery-acne scars. TONSILLECTOMY ANE Review of Systems Review of systems is: negative Review of Systems: - Exercise capacity METS (RN): 3 METS ANE Patient History - Allergies Allergies/Adverse Reactions: prednisone Allergy (Verified 06/19/18 17:26) ANXIOUS - Home Medications Home Medications: Lisinopril [Zestril 20 mg (*)] 20 mg PO DAILY 08/27/12 [Last Taken 06/22/18 04: 00] celeCOXIB [Celebrex (*)] 400 mg PO DAILY 08/27/12 [Last Taken 06/20/18] morphINE SR [MS Contin/Oramorph SR 30 mg (*)] 30 mg PO TID 06/17/13 [Last Taken 06/22/18 14:02] morphINE SR [Ms Contin/Oramorph 15 mg (*)] 15 mg PO BID 06/18/13 [Last Taken 08/05 14:00] Baclofen [Baclofen 10 mg (*)] 10 - 15 mg PO HS PRN 03/25/16 [Last Taken 06/18/18 ] Polyethylene Glycol 3350 [Miralax 17 gm (*)] 17 gm PO TID PRN 03/25/16 [Last Taken 06/21/18 20:00] Advair 250/50 (*) BID 06/19/18 [Last Taken 06/22/18 04:00] Albuterol Sulfate Hfa PRN 06/19/18 [Last Taken 06/22/18 14:12] Androderm MISC DAILY 06/19/18 [Last Taken Unknown] Metoprolol Succinate 50 mg PO DAILY 06/19/18 [Last Taken 06/22/18 04:00] Psyllium Husk 10 PO HS 06/19/18 [Last Taken 06/22/18 04:00] Rosuvastatin Calcium 40 mg PO DAILY 06/19/18 [Last Taken 06/22/18 04:00] Viagra PRN 06/19/18 [Last Taken 06/19/18] Zetia 10 MG (*) 10 mg PO DAILY 06/19/18 [Last Taken 06/22/18 04:00] - NPO status NPO Since - Liquids (Date): 06/22/18 NPO Since - Liquids (Time): 05:00 NPO Since - Solids (Date): 06/22/18 NPO Since - Solids (Time): 04:00 - Smoking Hx Smoking Status: Current some day smoker - Family Anes Hx Family Hx Anesthesia Complications: none ANE Labs/Vital Signs - Vital Signs Blood Pressure: 122/82 Heart Rate: 65 Respiratory Rate: 19 O2 Sat (%): 93 Height: 179.07 cm Weight: 96.615 kg ANE Physical Exam - Airway Neck exam: FROM Mallampati Score: Class 2 Mouth exam: normal dental/mouth exam - Pulmonary Pulmonary: no respiratory distress - Cardiovascular Cardiovascular: regular rate and rhythym - ASA Status ASA Status: III ANE Anesthesia Plan Anesthesia Plan: MAC
[2018-06-22] MEDS ORDERED: ceFAZolin 2 GM/DEXTROSE 100 ML IV ONE (15:30)
[2018-06-22] MEDS ORDERED: fentaNYL 100 MCG/2 ML INJ IVP PRN (15:34)
[2018-06-22] MEDS ORDERED: LABETALOL HCL 5 MG/ML 20 ML MDV IVP PRN (15:34)
[2018-06-22] MEDS ORDERED: ALBUTEROL 3 ML DEYVIAL IH PRN (15:34)
[2018-06-22] MEDS ORDERED: HYDROmorphONE/DILAUDID 1 MG/ML INJ IVP PRN (15:34)
[2018-06-22] MEDS ORDERED: oxyCODONE IR 5 MG TAB PO PRN (15:34)
[2018-06-22] MEDS ORDERED: ONDANSETRON 4 MG/2 ML VIAL IVP PRN (15:34)
[2018-06-22] MEDS ORDERED: NALOXONE HCL 0.4 MG/ML INJ IVP PRN (15:34)
--- NOTE | 2018-06-22 15:58 | POSTANESTH ---
Post Anesthetic Evaluation Cardiovascular Status: Normal, Stable Respiratory Status: Normal, Stable Level of Consciousness/Mental Status: Can Participate in Eval Pain Control: Adequate, Prn Tx Ordered Nausea/Vomiting Control: Adequate, Prn Tx Ordered Complications Possibly Related to Anesthesia: None Noted
--- NOTE | 2018-06-22 16:00 | POSTOPPROG ---
Post Op Note Date of Operation: 06/22/18 Surgeon: Jaime Sy Overlock Waistline Joiner: none Anesthesiologist: Adilene Pruett Anesthesia: IV Sedation Pre-op Diagnosis: Right carpal tunnel syndrome Post-op Diagnosis: Same Indication: pain and numbness Procedure: open right carpal tunnel release Findings: median nerve erythema nad compression Inf/Abcess present in the surg proc area at time of surgery?: No Depth: Deep Incisional (Fascial) EBL: Minimal Total fluids administered: 600cc Complications: none Specimen(s): no
--- NOTE | 2018-06-22 16:25 | GOP ---
[f rep st] PREOP HISTORY AND PHYSICAL DATE OF ADMISSION: 06/22/2018 PREOPERATIVE DIAGNOSIS: Right carpal tunnel syndrome. POSTOPERATIVE DIAGNOSIS: Right carpal tunnel syndrome. PROPOSED OPERATION: Right open carpal tunnel release. INDICATION: Persistent symptoms of pain and numbness longstanding, but with recent increase and EMG and nerve conduction study showing severe carpal tunnel syndrome on the right side. It was felt that surgical correction at this point was a good option for him. DESCRIPTION: Under local infiltration block with 0.5% plain Marcaine, a total of 16 cc was used and with monitored anesthesia care and sedation by Anesthesiology, patient's right arm was prepped and dr aped in usual fashion, and with the arm tourniquet at 250 mmHg, a longitudinal incision was made from the mid palm to the heel of the palm. Skin and subcutaneous tissue were reflected. Palmar fascia a nd transverse carpal ligament were released longitudinally. Distal forearm fascia was released by pa ssing a Metzenbaum scissors proximally under the skin after first freeing up overlying and underlying structures. The median nerve once unroofed, was inspected. It was adherent to the radial leaflet t he transverse carpal ligament, was hourglass, and erythematous at the level of the ligament. Proxima lly and distally to that area, it appeared normal. The wound was irrigated profusely with body temperature saline. No other pathology was identified. Skin closed with horizontal mattress sutures of 5-0 Prolene. A bulky soft pressure dressing was appl ied, followed by palmar based fiberglass splint held in place with an Bereket bandage. Tourniquet deflat ion resulted in immediate pinking of the digits, and he was brought to the recovery area where detail ed instructions were given prior to discharge. A prescription for tramadol and Keflex. Followup arr angements in the office for about a week postop for dressing and suture removal, and remobilization e xercises, and night splint wear for 1 month. /[id number]/MODL
[2018-06-22 17:30] VITALS: BP 113/71
== END 2018-06-22 17:31 | disposition home or self-care (01) ==
LOC: FSGY 12:37
PROVIDERS: ATTEND Specialist
PROC: 01S50ZZ Reposition Median Nerve, Open Approach (ICD-10-PCS; principal; 2018-06-22 14:45)
DX: G56.01 Carpal tunnel syndrome, right upper limb (principal); F17.210 Nicotine dependence, cigarettes, uncomplicated; J44.9 Chronic obstructive pulmonary disease, unspecified; I25.2 Old myocardial infarction; I25.10 Atherosclerotic heart disease of native coronary artery without angina pectoris; I27.20 Pulmonary hypertension, unspecified; M48.02 Spinal stenosis, cervical region; Z95.5 Presence of coronary angioplasty implant and graft
CPT/HCPCS: J0690; J2704; J3010

== ENCOUNTER 2018-09-06 09:15 | Day surgery (SDC) | payer OTHER, MEDICAID | END 2018-09-06 13:25 | disposition home or self-care (01) | LOC: FSGY 09:15 ==